=== PATIENT | female | born 1955 | race Two or more races ===

== ENCOUNTER 2023-08-29 08:10 | Outpatient (REF) | payer OTHER, SELFPAY ==
[2023-08-29 11:25] LABS: MANUAL DIFF FLAG NO
[2023-08-29 11:32] LABS: Basophils Percent Auto 0.5 % (0-2); Eosinophils Absolute Auto 0.1 X10*3/uL (0.0-0.4); Eosinophils Percent Auto 1.5 % (0-4); Hematocrit 33.7 % (37.0-47.0); Hemoglobin 11.3 g/dl (12.0-16.0); Imm Gran Abs Auto 0.02 X10*3/uL (0.00-0.03); Imm Gran Pct Auto 0.3 % (0.0-0.4); Lymphocytes Absolute Auto 1.8 X10*3/uL (1.2-4.9); Lymphocytes Percent Auto 29.7 % (20-40); Mean Corpuscular HGB Conc 33.5 g/dl (31.0-35.0); Mean Corpuscular Hemoglobin 30.6 pg (27.0-33.0); Mean Corpuscular Volume 91.3 fL (80.0-98.0); Mean Platelet Volume 10.1 fL (9.4-12.3); Monocytes Absolute Auto 0.4 X10*3/uL (0.1-1.2); Monocytes Percent Auto 7.2 % (2-11); Neutrophils Absolute Auto 3.7 x10*3/uL (2.0-8.3); Neutrophils Percent Auto 60.8 % (45-73); Platelet Count 194 X10*3/uL (160-400); Red Blood Count 3.69 X10*6/uL (4.20-5.50); Red Cell Distribution Width 12.7 % (11.0-16.0); White Blood Count 6.1 X10*3/uL (4.8-10.8)
[2023-08-29 11:51] LABS: Alanine Aminotransferase 13 U/L (0-31); Albumin Level 4.2 g/dL (3.5-5.0); Alkaline Phosphatase 70 U/L (39-117); Anion Gap 9 (12-20); Aspartate Amino Transferase 21 U/L (5-31); Bilirubin Total 0.8 mg/dL (0.0-1.0); Blood Urea Nitrogen 16 mg/dL (9-16); Calcium 10.3 mg/dL (8.4-10.2); Carbon Dioxide 32 mmol/L (22-29); Chloride 107 mmol/L (96-108); Cholesterol 175 mg/dL (<200); Estimated Glomerular Filt Rate > 60; Glucose Random 89 mg/dL (60-115); HDL Cholesterol 54 mg/dL (>40); LDL Cholesterol Calculated 104 mg/dL (<100); Potassium 3.7 mmol/L (3.3-5.1); Sodium 144 mmol/L (135-145); Triglycerides 89 mg/dL (<150)
[2023-08-29 12:06] LABS: HBS Num1 0.59 mIU/mL (0-7.99)
[2023-08-29 12:07] LABS: HBc Num1 0.11 S/CO (0.00-0.79); HBsAGNum1 0.29 S/CO (0.00-0.99); HIV AB/AG Nonreactive (Nonreactive); HIV Num 1 0.05 S/CO (0.00-0.99); Hepatitis B Core Antibody Nonreactive (Nonreactive); Hepatitis B Surface Antigen Negative (Negative); TSH reflex Free T4 1.42 uIU/mL (0.32-4.0); ~Hepatitis B Surface Antibody NONREACTIVE (Nonreactive); ~Hepatitis C Antibody Nonreactive (Nonreactive)
== END 2023-08-29 08:11 | disposition home or self-care (01) ==
LOC: HO.HHCL 08:10
PROVIDERS: Visit Provider Nurse Practitioner
DX: I49.40 Unspecified premature depolarization (principal); Z13.9 Encounter for screening, unspecified; E03.9 Hypothyroidism, unspecified
CPT/HCPCS: 36415; 80053; 80061; 84443; 85025; 86704; 86706; 86803; 87340; 87389

== ENCOUNTER 2023-10-02 08:17 | Outpatient (REF) | payer OTHER, SELFPAY ==
[2023-10-02 11:32] LABS: Iron 121 mcg/dL (30-160); Percent Iron Saturation 42 % (15-50); Total Iron Binding Capacity 286 mcg/dL (228-428); Unsaturated Iron Binding 165 ug/dL
== END 2023-10-02 08:18 | disposition home or self-care (01) ==
LOC: HO.HHCL 08:17
PROVIDERS: Visit Provider Nurse Practitioner Family
DX: D64.9 Anemia, unspecified (principal)
CPT/HCPCS: 36415; 83540

== ENCOUNTER 2023-10-10 13:20 | Outpatient (REF) | payer OTHER, SELFPAY ==
--- NOTE | ~2023-10-10 | MM_ITS ---
EXAMINATION: BONE DENSITOMETRY CLINICAL INDICATION: History of osteoporosis. COMPARISON: This is the patient's baseline examination. TECHNIQUE: Using a Amplid[employer] DXA System (software version: 13.1) manufactured by [employer], dual-energy x-ray absorptiometry was performed of the lumbar spine and left hip. The images are of good technical quality. Summary results are attached. FINDINGS: LEFT FEMUR, NECK: BMD 0.558 g/cm2, Z-score -1.5, T-score -3.5, osteoporosis. LEFT FEMUR, TOTAL: BMD 0.530 g/cm2, Z-score -2.0, T-score -3.8, osteoporosis. AP SPINE L1-L4: BMD 0.806 g/cm2, Z-score -1.0, T-score -3.1, osteoporosis. IDENTIFIED RISK FACTORS: Early menopause, height loss, hysterectomy, low body weight, osteoporosis, rheumatoid arthritis, secondary osteoporosis (hyperthyroidism). HISTORY OF FRACTURE: None listed. MEDICATIONS: Calcium, vitamin D, Prolia. MM/XR DEXA axial skeleton IMPRESSION: 1. DIAGNOSIS: Osteoporosis based on the lowest T-score value of -3.8 in the total femur applying World Health Organization criteria. 2. 10-YEAR FRACTURE RISK PREDICTION, FRAX: According to the guidelines, FRAX calculation should only be performed on patients in the osteopenia bone density category. Therefore, FRAX was not performed on this patient. 3. Treatment Recommendations: NOF guidelines recommend consideration for treatment in postmenopausal women and men age 50 and older presenting with the following: -A hip or vertebral (clinical or morphometric) fracture. -T-score less than or equal to -2.5 at the femoral neck or spine after appropriate evaluation to exclude secondary causes. -Low bone mass at the hip or spine and a 10-year fracture probability by FRAX of greater than or equal to 3% for hip fracture or greater than or equal to 20% for major osteoporotic fracture based on the [place] adapted WHO algorithm. 4. Other Recommendations: All treatment decisions require clinical judgment and consideration of individual patient factors, including patient preferences, comorbidities, previous drug use, risk factors not captured in the FRAX model (e.g. frailty, falls, vitamin D deficiency, increased bone turnover, interval significant decline in bone density) and possible under or overestimation of fracture risk by FRAX. Additional medical evaluation for secondary cause of low bone mineral density may be appropriate. FUTURE SCAN RECOMMENDATION: People with diagnosed cases of osteoporosis or at high risk for fracture should have regular bone mineral density tests. For patients eligible for Medicare, routine testing is allowed once every 2 years. The testing frequency can be increased to one year for patients who have rapidly progressing disease, those who are receiving or discontinuing medical therapy to restore bone mass, or have additional risk factors.
== END 2023-10-10 13:21 | disposition home or self-care (01) ==
LOC: HO.MAMMO 13:20
PROVIDERS: PCP Nurse Practitioner; Visit Provider Nurse Practitioner
DX: M81.0 Age-related osteoporosis without current pathological fracture (principal); Z78.0 Asymptomatic menopausal state
CPT/HCPCS: 77080

== ENCOUNTER 2023-11-11 14:00 | Outpatient (RCR) | payer OTHER, SELFPAY | END 2023-12-24 12:18 | disposition home or self-care (01) | LOC: HO.PT 14:00 | PROVIDERS: PCP Nurse Practitioner; Visit Provider Nurse Practitioner | DX: M54.2 Cervicalgia (principal) | CPT/HCPCS: 97110; 97140; 97161; 97535 ==

== ENCOUNTER 2023-11-14 02:27 | Inpatient (IN) | payer OTHER, SELFPAY ==
[2023-11-14] VITALS (9 sets, daily range): BP systolic 100–137; BP diastolic 53–75; PULSE 66–100; RESP 12–18; TEMP 36.2–36.7; O2SAT 98–100; BMI 21.2; BMI 23.7
--- NOTE | ~2023-11-14 | XR_ITS ---
EXAMINATION: XR CHEST CLINICAL INFORMATION: NG tube insertion. COMPARISON: [facility] 11/18/2023, x-ray chest 11/14/2023. TECHNIQUE: Frontal view of the chest was obtained. FINDINGS: NG tube courses through the expected location of the stomach in the left upper quadrant with tip projecting in the right upper quadrant, possibly in the distal stomach/antrum/proximal duodenum. Heart size is normal. Bibasilar consolidations, left greater than right. Small left pleural effusion. There is no gross pneumothorax. Cardiac silhouette upper limits of normal in size. XR/XR chest 1V IMPRESSION: 1. NG tube courses through the expected location of the stomach in the left upper quadrant with tip projecting in the right upper quadrant, possibly in the distal stomach/antrum/proximal duodenum. 2. Bibasilar consolidations, left greater than right. Small left pleural effusion. Electronically signed by: Lisbet Aguilar MD 11/20/2023 07:36 AM EDT
--- NOTE | ~2023-11-14 | XR_ITS ---
EXAMINATION: XR ABDOMEN KUB CLINICAL INDICATION: Small bowel follow-through COMPARISON: Small bowel follow-through examination 2624 TECHNIQUE: AP view of the abdomen. FINDINGS: There has been progression of contrast compared to the small bowel follow-through earlier. There are multiple diffusely dilated small bowel loops throughout the abdomen. XR/XR KUB IMPRESSION: Progression of contrast compared to the small bowel follow-through earlier, though contrast does not reach the colon. Persistent small bowel obstruction. Electronically signed by: Holly Smyth MD 11/19/2023 04:07 AM EDT
--- NOTE | ~2023-11-14 | XR_ITS ---
EXAMINATION: XR CHEST CLINICAL INFORMATION: NG tube placement COMPARISON: None available. TECHNIQUE: Frontal view of the chest was obtained. FINDINGS: No significant abnormality is noted involving the heart, lungs, mediastinum, bony thorax or soft tissues. NG tube terminates in the stomach. XR/XR chest 1V IMPRESSION: NG tube terminates in the stomach. Electronically signed by: Holly Smyth MD 11/14/2023 06:24 AM EDT
--- NOTE | ~2023-11-14 | FL_ITS ---
EXAMINATION: FL SMALL BOWEL FOLLOW-THROUGH CLINICAL INFORMATION: High-grade bowel obstruction on CT scan COMPARISON: CT scan November 14, 2023 TECHNIQUE: Following a cafeteria cashier image of the abdomen, contrast was administered orally, and interval abdominal radiographs were performed to assess for contrast progression through the small bowel. FINDINGS: Marine Engine Driver image of the abdomen demonstrates dilated small bowel loops throughout the abdomen. After ingesting the Gastrografin, the patient vomited majority of the contrast. Abdominal radiographs obtained demonstrated a small amount of Gastrografin in the small bowel. The patient declined to drink any further mouth of Gastrografin. FL/FL small bowel follow through IMPRESSION: 1. Dilated loops of small bowel throughout the abdomen. Insufficient amount of Gastrografin ingested for diagnostic study. Patient declined additional contrast. This procedure was performed by Yosef Shen PA-C, and supervised by Dr. Talavera Electronically signed by: Jey Talavera MD 11/18/2023 04:55 PM EDT
--- NOTE | ~2023-11-14 | CT_ITS ---
EXAMINATION: CT ABDOMEN PELVIS WITH IV CONTRAST CLINICAL INFORMATION: diffuse abdominal pain COMPARISON: None. TECHNIQUE: IV contrast enhanced CT of the abdomen and pelvis Intravenous Contrast: Omnipaque [address] examination was performed using dose optimization techniques as appropriate, variously including the following: *Automated exposure control *Adjustment of mA and/or kV according to patient size (this includes techniques or standardized protocols for targeted exams where dose is matched to indication/reason for exam; i.e. extremities or head) *Use of iterative reconstruction technique DLP: 346 mGy-cm FINDINGS: Multiple thin-walled dilated small bowel segments are present measuring up to 3 cm in diameter. A transition between dilated and nondilated small bowel segments is noted within the right hemipelvis (series 3 image 66, series 7 image 29). Immediately proximal segment of small bowel demonstrates prominence of mucosal hyperemia and reticulation of the adjacent small bowel mesentery. No associated mass or hernia is noted in this region the uterus is not visualized and may be surgically absent. No adnexal lesions are noted. No abdominal wall hernias visualized. No free intraperitoneal gas noted. Trace scattered interloop free intraperitoneal fluid is noted and may represent reactive fluid. The colon is largely decompressed side from a moderate quantity of physiologic stool in the rectal vault. Normal appearance of the appendix. The visualized lung bases are clear. Focal fatty sparing is noted adjacent to the falciform ligament of the liver. Normal appearance of the gallbladder. No biliary duct dilatation. Normal appearance of the pancreas and spleen. Normal appearance of the adrenal glands and kidneys aside from a 9 mm rounded low-density focus within the right kidney most consistent with a benign, simple cyst requiring no additional imaging follow-up. Urinary bladder demonstrates mild physiologic distention. Mild scattered atherosclerosis is present. The abdominal aorta is normal in caliber. No abdominal or pelvic lymphadenopathy noted. No suspicious skeletal lesions noted. Incidental note made of a synovial inclusion cyst associated with the right femoral neck. CT/CT abdomen pelvis w IV con IMPRESSION: *High-grade small bowel obstruction. A transition between dilated and nondilated small bowel is identified in the right hemipelvis within the distal ileum and may be secondary to otherwise nonvisualized adhesions. No mass or hernia is noted in association with the transition point. No evidence of intestinal perforation. The uterus is absent consistent with prior hysterectomy. Electronically signed by: Jason Davis MD 11/14/2023 04:47 AM EDT RP
[2023-11-14 03:06] LABS: MANUAL DIFF FLAG NO
[2023-11-14 03:09] LABS: Basophils Percent Auto 0.2 % (0-2); Eosinophils Percent Auto 0.1 % (0-4); Hematocrit 37.4 % (37.0-47.0); Imm Gran Abs Auto 0.04 X10*3/uL (0.00-0.03); Imm Gran Pct Auto 0.3 % (0.0-0.4); Lymphocytes Absolute Auto 1.1 X10*3/uL (1.2-4.9); Lymphocytes Percent Auto 8.4 % (20-40); Mean Corpuscular HGB Conc 34.8 g/dl (31.0-35.0); Mean Corpuscular Hemoglobin 30.8 pg (27.0-33.0); Mean Corpuscular Volume 88.6 fL (80.0-98.0); Mean Platelet Volume 9.2 fL (9.4-12.3); Monocytes Absolute Auto 0.5 X10*3/uL (0.1-1.2); Monocytes Percent Auto 4.2 % (2-11); Neutrophils Absolute Auto 10.9 x10*3/uL (2.0-8.3); Neutrophils Percent Auto 86.8 % (45-73); Platelet Count 216 X10*3/uL (160-400); Red Blood Count 4.22 X10*6/uL (4.20-5.50); Red Cell Distribution Width 12.1 % (11.0-16.0); White Blood Count 12.5 X10*3/uL (4.8-10.8)
[2023-11-14 03:22] LABS: Alanine Aminotransferase 11 U/L (0-31); Albumin Level 4.5 g/dL (3.5-5.0); Alkaline Phosphatase 98 U/L (39-117); Anion Gap 16 (12-20); Aspartate Amino Transferase 22 U/L (5-31); Bilirubin Direct 0.3 mg/dL (0.0-0.5); Blood Urea Nitrogen 13 mg/dL (9-16); Calcium 10.5 mg/dL (8.4-10.2); Carbon Dioxide 24 mmol/L (22-29); Chloride 105 mmol/L (96-108); Creatinine Clr Calc Pharmacy 39.3; Estimated Glomerular Filt Rate 54; Glucose Random 151 mg/dL (60-115); Lipase 14 U/L (8-78); Potassium 3.6 mmol/L (3.3-5.1); Sodium 141 mmol/L (135-145); Total Protein 7.5 g/dL (6.5-8.0)
[2023-11-14] MEDS: iohexoL 350 MG/ML 100 ML INFUS..BTL 85 ML IV (04:23)
[2023-11-14] MEDS: ondansetron HCL 4 MG/2 ML VIAL IVPUSH (04:25)
[2023-11-14] MEDS: Morphine Sulfate 4 MG/ML CARTRIDGE IVPUSH (04:25)
[2023-11-14] MEDS: 0.9 % Sodium Chloride 1,000 ML 200 ML IVCONT (04:25)
--- NOTE | 2023-11-14 05:27 | ED_ITS ---
HPI - Abdominal Pain General Chief Complaint: Abdominal Pain Stated Complaint: Abd Pain Time Seen by Provider: 11/14/23 03:50 Source: patient and family Mode of arrival: ambulatory Limitations: language barrier History of Present Illness ED Provider: Dr. King HPI narrative: patient is a 68yo female with prior tubal ligation, Hysterectomy, partial oophorectomy who presents with intermittent abdominal pain getting worse more intense and longer. Patient has been vomiting on occaision. MD elicited complaint: abdominal pain Onset (ago): day(s) Pain Consistency: intermittent Related Data Allergies Allergy/AdvReac Type Severity Reaction Status Date / Time Sulfa (Sulfonamide Allergy Anaphylaxis Verified 11/14/23 02:36 Antibiotics) aspirin AdvReac Nausea Verified 11/14/23 02:36 Review of Systems Review of Systems Yes all other systems are reviewed and are negative Denies Sensory deficit (Neuro) [facility] Social History Social History Advance Directives: No Advance Directives Information Provided: Yes Do you have a plan to hurt others: No Plan Physical Exam ED Vital Signs: Vital Signs - 24 hr 11/14/23 02:28 11/14/23 02:56 11/14/23 04:03 Temperature 97.9 F 98.1 F Pulse Rate 97 92 82 Respiratory Rate 18 16 16 Blood Pressure 118/73 137/75 117/74 Pulse Oximetry 99 99 98 Oxygen Delivery Method Room Air Room Air Room Air BMI result Body Mass Index 21.2 Const Other: thin female in intermittent severe pain Orientation/consciousness: oriented to person and patient oriented x3 Limitations: no limitations HENMT Head: Yes normal to inspection Ears: external ears normal General nose exam: Normal external nose present Mouth: Normal oral and palatal mucosa present and oropharynx normal Throat: Yes posterior oropharynx normal Eyes General: appearance normal, both eyes and all related structures Neck Neck: Yes normal visual inspection Chest Chest palpation & inspection: normal inspection of the chest Resp Auscultation: clear to auscultation bilaterally Cardio Jugular venous distension: no JVD Rate: regular rate Rhythm: regular rhythm Heart sounds: S1 normal heart sound present and S2 normal heart sound present GI Other: diffusely tender Inspection: Yes normal to inspection General: Yes no CVA tenderness Back/Spine/Pelvis Back: no CVA tenderness Skin General skin exam: no rashes or lesions noted Neuro General: oriented to person and patient oriented x3 Cranial nerves: Yes CN's II-XII intact bilaterally Motor exam (neuro): 5/5 motor strength present throughout Sensory Exam: No Sensory deficit (Neuro) Extrem General: Yes normal to inspection Psych Appearance: grossly normal Course Reevaluation(s) Reevaluation #1: patient with bowel obstruction on CT will place ngt and admit, discussed with dr. Muro Time: 05:35 Medical Decision Making Differential Diagnosis Differential Diagnoses: The differential diagnosis associated with the presentation includes (colitis, pancreatitis, bowel obstruction diverticulitis) Admission/Observation Consideration of admission/observation: Escalation of care including admission/observation considered (upon arrival patient considered for admission) Consult Healthcare Provider Management of the patient was discussed with: Electrical Maintenance Technician (Jina, surgery) Lab Data 11/14/23 03:02 11/14/23 03:02 Labs: Lab Results 11/14/23 Range/Units 03:02 WBC 12.5 H (4.8-10.8) X10*3/uL RBC 4.22 (4.20-5.50) X10*6/uL Hgb 13.0 (12.0-16.0) g/dl Hct 37.4 (37.0-47.0) % MCV 88.6 (80.0-98.0) fL MCH 30.8 (27.0-33.0) pg MCHC 34.8 (31.0-35.0) g/dl RDW 12.1 (11.0-16.0) % Plt Count 216 (160-400) X10*3/uL MPV 9.2 L (9.4-12.3) fL Immature Gran % (Auto) 0.3 (0.0-0.4) % Neut % (Auto) 86.8 H (45-73) % Lymph % (Auto) 8.4 L (20-40) % [place] % (Auto) 4.2 (2-11) % Eos % (Auto) 0.1 (0-4) % Baso % (Auto) 0.2 (0-2) % Lymph # (Auto) 1.1 L (1.2-4.9) X10*3/uL [place] # (Auto) 0.5 (0.1-1.2) X10*3/uL Eos # (Auto) 0.0 (0.0-0.4) X10*3/uL Baso # (Auto) 0.0 (0.0-0.2) X10*3/uL Abs Immat Gran (auto) 0.04 H (0.00-0.03) X10*3/uL Absolute Neuts (auto) 10.9 H (2.0-8.3) x10*3/uL Absolute Nucleated RBC 0.000 (0.0-0.012) X10*3/uL Nucleated RBC % (auto) 0.0 (0.0-0.2) /100WBC Sodium 141 (135-145) mmol/L Potassium 3.6 (3.3-5.1) mmol/L Chloride 105 (96-108) mmol/L Carbon Dioxide 24 (22-29) mmol/L Anion Gap 16 (12-20) BUN 13 (9-16) mg/dL Creatinine 1.02 (0.5-1.4) mg/dL Estim Creat Clear Calc 39.3 Estimated GFR 54 Random Glucose 151 H (60-115) mg/dL Calcium 10.5 H (8.4-10.2) mg/dL Total Bilirubin 1.0 (0.0-1.0) mg/dL Direct Bilirubin 0.3 (0.0-0.5) mg/dL AST 22 (5-31) U/L ALT 11 (0-31) U/L Alkaline Phosphatase 98 (39-117) U/L Total Protein 7.5 (6.5-8.0) g/dL Albumin 4.5 (3.5-5.0) g/dL Lipase 14 (8-78) U/L Radiology Impression Discussion of test interpretation with radiology: I have reviewed the radiologist's reading. (I reviewed the reading of the CT and agree) Independent Historian Clinical information obtained from an independent historian. History obtained from or confirmed by: Friend Prescription Management I considered prescription management with: Antibiotic (no evidence of infection) Medications Administered Generic Name Dose Route Start Last Admin Trade Name Freq PRN Reason Stop Dose Admin Sodium Chloride 1,000 mls @ 200 mls/hr 11/14/23 04:15 11/14/23 04:25 Ns IVCONT 11/14/23 09:14 200 mls/hr .Q5H [facility] Administration Discontinued Medications Generic Name Dose Route Start Last Admin Trade Name Saúlq PRN Reason Stop Dose Admin Iohexol 85 ml 11/14/23 04:22 11/14/23 04:23 Iohexol 350 Mg/Ml 100 Ml Infus..Btl IV 11/14/23 04:23 85 ml ONCE ONE Administration Morphine Sulfate 4 mg 11/14/23 04:03 11/14/23 04:25 Morphine Sulfate 4 Mg/Ml Cartridge IVPUSH 11/14/23 04:04 4 mg ONCE ONE Administration Protocol Ondansetron HCl 4 mg 11/14/23 04:03 11/14/23 04:25 Ondansetron Hcl 4 Mg/2 Ml Vial IVPUSH 11/14/23 04:04 4 mg ONCE ONE Administration Discharge Plan Discharge Clinical Impression: Bowel obstruction Patient Disposition: Admitted As Inpatient Print Language: Ukrainian
[2023-11-14] MEDS: Acetaminophen 1,000 MG/100 ML PIGGYBACK 400 MG IV ×4 (07:01→23:42)
[2023-11-14] MEDS: 0.9 % Sodium Chloride Flush 3 ML SYRINGE IVFLUSH (07:54)
[2023-11-14] MEDS: Lactated Ringers 1,000 ML 100 ML IVCONT ×2 (07:54→16:36)
--- NOTE | 2023-11-14 08:03 | PC.NURSE ---
alert and oriented with even and unlabored respirations. NG tube in place w/ 200mL output. ambulates independently to the bathroom, only complaint at this time is discomfort d/t ng tube. IV fluids infusing, call ardon within reach.
--- NOTE | 2023-11-14 09:25 | P.HPGS_ITS ---
History of Present Illness History of Present Illness Date of Service: 11/14/23 Chief complaint: Small Bowel Obstruction Narrative: Annabel Mckinley is a 68 year old equatorial guinean speaking female with PMH of HTN, hypothyroidism who presented to the ED with complaints of diffuse abdominal pain. Patient reports the pain began one week ago. It has been intermittent and crampy in nature and has been gradually worsening in severity and with pain lasting longer. She reports feeling bloated. Due to the severity of pain yesterday and vomiting, she presented to the ED for evaluation. Work up in the ED included CBC, BMP, LFTs which was significant for a mild leukocytosis. CT scan showed dilated small bowel loops with transition transition point in the right hemipelvis. NGT was inserted in the ED and admission to the surgical service was requested. She has a surgical history of hysterectomy, oophorectomy, tubal ligation. This morning she feels improved this morning and denies any abdominal pain, bloating. She has not passed flatus. Reports last BM was yesterday morning and was normal. She reports similar episode of pain one time prior lat year which was not as severe and resolved quickly. Review of Systems 2 Constitutional: Constitutional: Denies chills and Denies fever(s) ENT: Denies dizziness Cardiovascular: Cardiovascular: Denies chest pain and Denies dyspnea Respiratory: Respiratory: Denies cough and Denies dyspnea Gastrointestinal: Gastrointestinal: Reports as per HPI, Reports bloating, Reports nausea and Reports vomiting Integumentary/Breasts: Skin/Breast: Denies rash and Denies jaundice Neurologic: Denies dizziness [facility], [facility] Social History Social History Patient Tobacco Use Status: Never used Tobacco Smoked in Last 30 Days: No Use of substances other than those prescribed or required for medical reasons: No Advance Directives: No Advance Directives Information Provided: Yes Do you have a plan to hurt others: No Plan Nutrition Risks: No Nutritional Risk Meds Allergies Allergy/AdvReac Type Severity Reaction Status Date / Time Sulfa (Sulfonamide Allergy Anaphylaxis Verified 11/14/23 02:36 Antibiotics) aspirin AdvReac Nausea Verified 11/14/23 02:36 Active Medications: Current Medications Enoxaparin Sodium (Enoxaparin Sodium 40 Mg/0.4 Ml Syringe) 40 mg SUBCUT Q24H [facility] Lactated Ringer's (Lr) 1,000 mls @ 100 mls/hr IVCONT .Q10H [facility] Last Admin: 11/14/23 07:54 Dose: 100 mls/hr Acetaminophen (Ofirmev) 1,000 mg in 100 mls @ 400 mls/hr IV Q6H [facility] Stop: 11/15/23 00:14 Last Infusion: 11/14/23 07:53 Dose: Infused Magnesium Hydroxide (Milk Of Magnesia 30 Ml Oral.Susp) 30 ml PO DAILY PRN PRN Reason: Constipation Morphine Sulfate (Morphine Sulfate 4 Mg/Ml Cartridge) 4 mg IVPUSH Q4H PRN; Protocol PRN Reason: Pain, Severe (Pain Scale 7-10) Ondansetron HCl (Ondansetron Hcl 4 Mg/2 Ml Vial) 4 mg IVPUSH QID PRN PRN Reason: Nausea Sodium Chloride (0.9 % Sodium Chloride Flush 3 Ml Syringe) 3 ml IVFLUSH QSHIFT [facility] Last Admin: 11/14/23 07:54 Dose: 3 ml Zolpidem Tartrate (Zolpidem Tartrate 5 Mg Tablet) 5 mg PO BEDTIME PRN PRN Reason: Insomnia Home Medications ?Medication ?Instructions ?Recorded ?Confirmed ?Last Taken ?Type atenolol 50 mg tablet 50 mg PO DAILY 11/14/23 11/14/23 11/13/23 History diclofenac sodium 1 % topical gel 1 g topical TID PRN pain 11/14/23 11/14/23 Unknown History famotidine 40 mg tablet 40 mg PO DAILY 11/14/23 11/14/23 11/13/23 History levothyroxine 25 mcg tablet 25 mcg PO DAILY@0600 11/14/23 11/14/23 11/13/23 History (Synthroid) sumatriptan succinate 25 mg tablet 25 mg PO DAILY PRN Migraine 11/14/23 11/14/23 Unknown History Headache Physical Exam 2 Vital Signs: Vital Signs: Last Vital Signs Temp 97.6 F 11/14/23 08:14 Pulse 66 11/14/23 08:14 Resp 14 11/14/23 08:14 BP 107/53 L 11/14/23 08:14 Pulse Ox 98 11/14/23 08:14 O2 Del Method Room Air 11/14/23 08:14 BMI result Body Mass Index 21.2 Const: General: comfortable, no acute distress and alert O rientation/consciousness: patient oriented x3 HEENT: Other: NGT in place Resp: Effort & Inspection: normal respiratory effort GI: Inspection: Yes distended (mild, softly) and Yes scar (midline, inferior to umbilicus ) Palpation (GI): Soft to palpation, nontender and no guarding Percussion: Yes normal to percussion Abdomen image: 1. midline hysterectomy scar Skin: General skin exam: no rashes or lesions noted Neuro: General: patient oriented x3 and moves all extremities Extrem: General: Yes no clubbing, cyanosis or edema Results Results Labs: Short CBC 11/14/23 Range/Units 03:02 WBC 12.5 H (4.8-10.8) X10*3/uL Hgb 13.0 (12.0-16.0) g/dl Hct 37.4 (37.0-47.0) % Plt Count 216 (160-400) X10*3/uL BMP 11/14/23 03:02 Sodium 141 Potassium 3.6 Chloride 105 Carbon Dioxide 24 BUN 13 Creatinine 1.02 Calcium 10.5 H Liver Function 11/14/23 Range/Units 03:02 Total Bilirubin 1.0 (0.0-1.0) mg/dL Direct Bilirubin 0.3 (0.0-0.5) mg/dL AST 22 (5-31) U/L ALT 11 (0-31) U/L Alkaline Phosphatase 98 (39-117) U/L Albumin 4.5 (3.5-5.0) g/dL Chest x-ray: image reviewed Abdomen CT scan report/results: report reviewed and image reviewed Assessment and Plan (1) Bowel obstruction: Status: Acute Plan Annabel Mckinley is a 68 year old equatorial guinean speaking female with PMH of HTN, hypothyroidism and PSH of hysterectomy, tubal and oophorectomy who presented with diffuse crampy abd pain x 1 week with acute worsening in severity yesterday with CT scan showing dilated bowel loops with possible transition point in the right hemipelvis. There was concern for high grade obstruction but she is improved this morning and is now asymptomatic with a very benign abd exam. Will continue nonoperative management with NGT for decompression, IVF, PRN analgesics. Encouraged OOB and ambulation to promote GI function. Further plan dependent on clinical course. Patient comfortable with plan. Quality Stroke Does the patient have a stroke diagnosis?: No VTE Prior VTE?: No VTE Risk Level:: Surgical - moderate VTE Device Contraindication: N/A - Device Ordered VTE Drug Contraindication: N/A - Med Ordered Procedures Date of Service Date of Service: 11/14/23
--- NOTE | 2023-11-14 10:18 | PHA.MEDREC ---
Addendum entered by Gabby Pederson RPh 11/14/23 10:22: Reviewed by [facility] Original Note: Pharmacy Consult ? Medication Reconciliation Pharmacy has completed the medication reconciliation.Spoke to patient through rn resource nurse service (Jaida) Patient was able to confirm med list. Patient states she get Name brand Synthroid. informed patient we do not carry name brand and she would have to bring it from home. Patient she says she can take generic.
--- NOTE | 2023-11-14 10:36 | PM.HPGS ---
History of Present Illness History of Present Illness Date of Service: 11/14/23 Chief complaint: Small Bowel Obstruction Narrative: Annabel Mckinley is a 68 year old female presenting with complaints of episodes of sharp abdominal pain located throughout the abdomen associated with nausea and vomiting. Patient reports a prior history of hysterectomy back in the 80s and denies a previous history of bowel obstructions. The pain became quite severe over the last several days and she subsequently presented to the emergency department for further evaluation. She was noted to be diffusely tender and distended. CT abdomen and pelvis revealed distended loops of small bowel with an apparent transition point in the distal small bowel. Nasogastric tube was inserted in the emergency department. This morning the patient feels somewhat improved with less abdominal pain the pain initially was 10/10 but now is down to 3/10. She denies any nausea at this time. She is admitted to the surgical service for further management of this small-bowel obstruction. Review of Systems Review of Systems: Yes all other systems are reviewed and are negative Constitutional: Constitutional: Denies chills, Denies fever(s), Denies headache(s), Reports poor appetite and Denies weakness ENT: Denies headache(s) Cardiovascular: Cardiovascular: Denies chest pain, Denies irregular heart rhythm, Denies palpitations and Denies dyspnea Respiratory: Respiratory: Denies cough, Denies excessive phlegm production and Denies dyspnea Gastrointestinal: Gastrointestinal: Reports abdominal pain, Denies bloating, Denies change in bowel habits, Denies constipation, Denies heartburn, Denies diarrhea, Reports nausea and Reports vomiting Genitourinary: Genitourinary: Denies urinary frequency Musculoskeletal: Musculoskeletal: Denies back pain, Denies muscle weakness and Denies numbness Integumentary/Breasts: Skin/Breast: Denies changing lesions and Denies unusual bruising Neurologic: Denies headache(s), Denies numbness, Denies paresthesias and Denies weakness Psychiatric: Psychiatric: Denies anxiety and Denies depression Endocrine: Endocrine: Denies palpitations Hematologic/Lymphatic: Hematologic/Lymphatic: Denies lymphadenopathy [facility] Social History Social History Patient Tobacco Use Status: Never used Tobacco Smoked in Last 30 Days: No Use of substances other than those prescribed or required for medical reasons: No Advance Directives: No Advance Directives Information Provided: Yes Do you have a plan to hurt others: No Plan Nutrition Risks: No Nutritional Risk Meds Allergies Allergy/AdvReac Type Severity Reaction Status Date / Time Sulfa (Sulfonamide Allergy Anaphylaxis Verified 11/14/23 02:36 Antibiotics) aspirin AdvReac Nausea Verified 11/14/23 02:36 Active Medications: Current Medications Enoxaparin Sodium (Enoxaparin Sodium 40 Mg/0.4 Ml Syringe) 40 mg SUBCUT Q24H [facility] Lactated Ringer's (Lr) 1,000 mls @ 100 mls/hr IVCONT .Q10H [facility] Last Admin: 11/14/23 07:54 Dose: 100 mls/hr Acetaminophen (Ofirmev) 1,000 mg in 100 mls @ 400 mls/hr IV Q6H [facility] Stop: 11/15/23 00:14 Last Infusion: 11/14/23 07:53 Dose: Infused Magnesium Hydroxide (Milk Of Magnesia 30 Ml Oral.Susp) 30 ml PO DAILY PRN PRN Reason: Constipation Morphine Sulfate (Morphine Sulfate 4 Mg/Ml Cartridge) 4 mg IVPUSH Q4H PRN; Protocol PRN Reason: Pain, Severe (Pain Scale 7-10) Ondansetron HCl (Ondansetron Hcl 4 Mg/2 Ml Vial) 4 mg IVPUSH QID PRN PRN Reason: Nausea Sodium Chloride (0.9 % Sodium Chloride Flush 3 Ml Syringe) 3 ml IVFLUSH QSHIFT [facility] Last Admin: 11/14/23 07:54 Dose: 3 ml Zolpidem Tartrate (Zolpidem Tartrate 5 Mg Tablet) 5 mg PO BEDTIME PRN PRN Reason: Insomnia Home Medications ?Medication ?Instructions ?Recorded ?Confirmed ?Last Taken ?Type atenolol 50 mg tablet 50 mg PO DAILY 11/14/23 11/14/23 11/13/23 History diclofenac sodium 1 % topical gel 1 g topical TID PRN pain 11/14/23 11/14/23 Unknown History famotidine 40 mg tablet 40 mg PO DAILY 11/14/23 11/14/23 11/13/23 History levothyroxine 25 mcg tablet 25 mcg PO DAILY@0600 11/14/23 11/14/23 11/13/23 History (Synthroid) sumatriptan succinate 25 mg tablet 25 mg PO DAILY PRN Migraine 11/14/23 11/14/23 Unknown History Headache Physical Exam Vital Signs: Vital Signs: Last Vital Signs Temp 97.6 F 11/14/23 08:14 Pulse 66 11/14/23 08:14 Resp 14 11/14/23 08:14 BP 107/53 L 11/14/23 08:14 Pulse Ox 98 11/14/23 08:14 O2 Del Method Room Air 11/14/23 08:14 BMI result Body Mass Index 21.2 Const: General: cooperative and no acute distress Nutritional Appearance: well nourished Orientation/consciousness: patient oriented x3 Limitations: no limitations HEENT: Head: Yes normocephalic and Yes atraumatic Ears: hearing grossly normal bilaterally Resp: Effort & Inspection: normal respiratory effort, no audible wheezes, no cough and no respiratory distress Cardio: Jugular venous distension: no JVD GI: Other: Soft, minimally distended, minimal tenderness, mildly tympanitic to percussion. No rebound, guarding or rigidity. Inspection: Yes normal to inspection Skin: Other: Warm, dry, no rash Neuro: General: patient oriented x3 Extrem: General: Yes no clubbing, cyanosis or edema Results Results Labs: Short CBC 11/14/23 Range/Units 03:02 WBC 12.5 H (4.8-10.8) X10*3/uL Hgb 13.0 (12.0-16.0) g/dl Hct 37.4 (37.0-47.0) % Plt Count 216 (160-400) X10*3/uL BMP 11/14/23 03:02 Sodium 141 Potassium 3.6 Chloride 105 Carbon Dioxide 24 BUN 13 Creatinine 1.02 Calcium 10.5 H Liver Function 11/14/23 Range/Units 03:02 Total Bilirubin 1.0 (0.0-1.0) mg/dL Direct Bilirubin 0.3 (0.0-0.5) mg/dL AST 22 (5-31) U/L ALT 11 (0-31) U/L Alkaline Phosphatase 98 (39-117) U/L Albumin 4.5 (3.5-5.0) g/dL Assessment and Plan (1) Bowel obstruction: Qualifiers: Intestinal obstruction type: obstruction due to adhesions Intestinal obstruction extent: partial Qualified Code(s): K56.51 - Intestinal adhesions [bands], with partial obstruction Status: Acute Plan 68-year-old female patient presenting with a probable partial small-bowel obstruction with abdominal tenderness, nausea and vomiting. This morning she feels improved with less abdominal pain following insertion of nasogastric tube decompression. She will be admitted to the surgical service and placed on IV fluids with continued nasogastric decompression. If her symptoms do not improve a repeat CT abdomen and pelvis with oral contrast will be performed. The patient expressed any and agrees with the plan. Quality Stroke Does the patient have a stroke diagnosis?: No VTE Prior VTE?: No VTE Risk Level:: Surgical - moderate VTE Device Contraindication: N/A - Device Ordered VTE Drug Contraindication: N/A - Med Ordered Procedures Date of Service Date of Service: 11/14/23
[2023-11-14 13:26] LABS: Appearance Urine Clear; Color Urine Yellow; Glucose Urine UA Negative (Negative); Leukocyte Esterase Urine Negative (Negative); Nitrite Urine Negative (Negative); PH 6.5 (5.0-9.0); Specific Gravity - Urine >= 1.030 (1.005-1.025); UMIC TRIGGER UACC YES; Urine Blood Trace (Negative); Urine Ketones Trace mg/dL (Negative); Urine Protein Negative (Neg-Trace)
[2023-11-14 13:32] LABS: Bacteria Urine None Seen (None Seen); Hyaline Casts Urine 0-2 /LPF (0-2); Squamous Epithelial Cell Urine 0-2 /HPF (0-2); WBC Urine 0-5 /HPF (0-5)
[2023-11-15] MEDS: Lactated Ringers 1,000 ML 100 ML IVCONT (03:10)
[2023-11-15 03:46] VITALS: BP 130/60; PULSE 75; RESP 18; TEMP 36.1; O2SAT 99
[2023-11-15] MEDS: Levothyroxine Sodium 25 MCG TABLET PO (05:30)
[2023-11-15 07:01] LABS: MANUAL DIFF FLAG NO
[2023-11-15 07:06] LABS: Basophils Percent Auto 0.2 % (0-2); Eosinophils Percent Auto 0.5 % (0-4); Hematocrit 34.6 % (37.0-47.0); Hemoglobin 11.7 g/dl (12.0-16.0); Imm Gran Abs Auto 0.03 X10*3/uL (0.00-0.03); Imm Gran Pct Auto 0.3 % (0.0-0.4); Lymphocytes Absolute Auto 1.3 X10*3/uL (1.2-4.9); Lymphocytes Percent Auto 15.1 % (20-40); Mean Corpuscular HGB Conc 33.8 g/dl (31.0-35.0); Mean Corpuscular Hemoglobin 30.8 pg (27.0-33.0); Mean Corpuscular Volume 91.1 fL (80.0-98.0); Mean Platelet Volume 10.2 fL (9.4-12.3); Monocytes Absolute Auto 0.6 X10*3/uL (0.1-1.2); Monocytes Percent Auto 6.7 % (2-11); Neutrophils Absolute Auto 6.7 x10*3/uL (2.0-8.3); Neutrophils Percent Auto 77.2 % (45-73); Platelet Count 186 X10*3/uL (160-400); Red Cell Distribution Width 12.3 % (11.0-16.0); White Blood Count 8.7 X10*3/uL (4.8-10.8)
[2023-11-15 07:27] LABS: Anion Gap 12 (12-20); Blood Urea Nitrogen 11 mg/dL (9-16); Calcium 9.3 mg/dL (8.4-10.2); Carbon Dioxide 29 mmol/L (22-29); Chloride 107 mmol/L (96-108); Creatinine Clr Calc Pharmacy 52.7; Estimated Glomerular Filt Rate > 60; Glucose Random 86 mg/dL (60-115); Potassium 3.7 mmol/L (3.3-5.1); Sodium 144 mmol/L (135-145)
--- NOTE | 2023-11-15 07:34 | PM.PNGS ---
Subjective Subjective Date of Service: 11/15/23 <Liliana Lynne PA-C - Last Filed: 11/15/23 07:39> 11/15/23 <Morales Muro MD - Last Filed: 11/15/23 07:55> Interval history: Feels well this morning, much improved. Denies any abdominal pain. Began passing flatus last night. NGT with moderate output but taking a lot of ice chips. <Liliana Lynne PA-C - Last Filed: 11/15/23 07:39> Physical Exam Vital Signs: Vital Signs: Last Vital Signs Temp 96.9 F 11/15/23 03:46 Pulse 75 11/15/23 03:46 Resp 18 11/15/23 03:46 BP 130/60 11/15/23 03:46 Pulse Ox 99 11/15/23 03:46 O2 Del Method Room Air 11/15/23 03:46 BMI result Body Mass Index 23.7 <Liliana Lynne PA-C - Last Filed: 11/15/23 07:39> Const: General: comfortable, no acute distress and alert <Liliana Lynne PA-C - Last Filed: 11/15/23 07:39> Orientation/consciousness: patient oriented x3 <ESTELA Hall Last Filed: 11/15/23 07:39> Resp: Effort & Inspection: normal respiratory effort <Liliana Lynne PA-C - Last Filed: 11/15/23 07:39> GI: Inspection: Yes distended (mildly ) <Liliana Lynne PA-C - Last Filed: 11/15/23 07:39> Palpation (GI): Soft to palpation, nontender and no guarding <Liliana Lynne PA-C - Last Filed: 11/15/23 07:39> Skin: General skin exam: no rashes or lesions noted <ESTELA Hall Last Filed: 11/15/23 07:39> Neuro: General: patient oriented x3 <ESTELA Hall Last Filed: 11/15/23 07:39> Objective Data Active Medications Atenolol (Atenolol 50 Mg Tablet) 50 mg PO DAILY [facility]; Protocol Enoxaparin Sodium (Enoxaparin Sodium 40 Mg/0.4 Ml Syringe) 40 mg SUBCUT Q24H [facility] Famotidine (Famotidine 20 Mg Tablet) 40 mg PO DAILY [facility] Lactated Ringer's (Lr) 1,000 mls @ 100 mls/hr IVCONT .Q10H [facility] Last Admin: 11/15/23 03:10 Dose: 100 mls/hr Documented By: JOSEPHINE Levothyroxine Sodium (Levothyroxine Sodium 25 Mcg Tablet) 25 mcg PO DAILY@0600 [facility] Last Admin: 11/15/23 05:30 Dose: 25 mcg Documented By: JOSEPHINE Magnesium Hydroxide (Milk Of Magnesia 30 Ml Oral.Susp) 30 ml PO DAILY PRN PRN Reason: Constipation Morphine Sulfate (Morphine Sulfate 4 Mg/Ml Cartridge) 4 mg IVPUSH Q4H PRN; Protocol PRN Reason: Pain, Severe (Pain Scale 7-10) Ondansetron HCl (Ondansetron Hcl 4 Mg/2 Ml Vial) 4 mg IVPUSH QID PRN PRN Reason: Nausea Sodium Chloride (0.9 % Sodium Chloride Flush 3 Ml Syringe) 3 ml IVFLUSH QSHIFT [facility] Last Admin: 11/15/23 00:13 Dose: Not Given Documented By: JOSEPHINE Non-Admin Reason: IV Running Sumatriptan Succinate (Sumatriptan Succinate 25 Mg Tablet) 25 mg PO DAILY PRN PRN Reason: Migraine Headache Zolpidem Tartrate (Zolpidem Tartrate 5 Mg Tablet) 5 mg PO BEDTIME PRN PRN Reason: Insomnia <Liliana Lynne PA-C - Last Filed: 11/15/23 07:39> Labs CBC & Chem 7: 11/15/23 05:09 11/15/23 05:09 <Liliana Lynne PA-C - Last Filed: 11/15/23 07:39> Labs: Laboratory Results - last 24 hr 11/14/23 11/15/23 13:09 05:09 MCV 91.1 MCH 30.8 MCHC 33.8 RDW 12.3 Plt Count 186 MPV 10.2 Immature Gran % (Auto) 0.3 Neut % (Auto) 77.2 H Lymph % (Auto) 15.1 L Rutherford % (Auto) 6.7 Eos % (Auto) 0.5 Baso % (Auto) 0.2 Lymph # (Auto) 1.3 Rutherford # (Auto) 0.6 Eos # (Auto) 0.0 Baso # (Auto) 0.0 Abs Immat Gran (auto) 0.03 Absolute Neuts (auto) 6.7 Absolute Nucleated RBC 0.000 Nucleated RBC % (auto) 0.0 Anion Gap 12 Estim Creat Clear Calc 52.7 Estimated GFR > 60 Random Glucose 86 Calcium 9.3 D Urine Color Yellow Urine Appearance Clear Urine pH 6.5 Ur Specific Vaughn >= 1.030 H Urine Protein Negative Urine Glucose (UA) Negative Urine Ketones Trace Urine Blood Trace H Urine Nitrite Negative Ur Leukocyte Esterase Negative Urine RBC 3-5 H Urine WBC 0-5 Ur Squamous Epith Cells 0-2 Urine Bacteria None Seen Hyaline Casts 0-2 <Liliana Lynne PA-C - Last Filed: 11/15/23 07:39> Procedures Date of Service Date of Service: 11/15/23 <Liliana Lynne PA-C - Last Filed: 11/15/23 07:39> 11/15/23 <Morales Muro MD - Last Filed: 11/15/23 07:55> Progress Note: A&P Assessment and plan (1) Bowel obstruction: Status: Acute <Liliana Lynne PA-C - Last Filed: 11/15/23 07:39> Assessment and Plan: Dc NGT, begin clear liquids. Will advance diet as tolerated. Cont OOB/ambulation. Patient comfortable with plan. Home when tolerating solid diet. <Liliana Lynne PA-C - Last Filed: 11/15/23 07:39> Dc NGT, begin clear liquids. Will advance diet as tolerated. Cont OOB/ambulation. Patient comfortable with plan. Home when tolerating solid diet. Agree with the above assessment and plan. Patient is much improved this morning with no abdominal pain, nausea or vomiting. Abdominal exam is benign without rebound, guarding or rigidity. No tympany to percussion. Agree with advancing diet, discharge when tolerating regular diet. <Morales Muro MD - Last Filed: 11/15/23 07:55> Time Spent With Patient Time: Total time managing care of this patient today ____ minutes. <Liliana Lynne PA-C - Last Filed: 11/15/23 07:39> Quality Stroke Does the patient have a stroke diagnosis?: No <Liliana Lynne PA-C - Last Filed: 11/15/23 07:39> VTE Prior VTE?: No <Liliana Lynne PA-C - Last Filed: 11/15/23 07:39> VTE Risk Level:: Surgical - moderate <Liliana Lynne PA-C - Last Filed: 11/15/23 07:39> VTE Device Contraindication: N/A - Device Ordered <Liliana Lynne PA-C - Last Filed: 11/15/23 07:39> VTE Drug Contraindication: N/A - Med Ordered <Liliana Lynne PA-C - Last Filed: 11/15/23 07:39>
[2023-11-15 08:00] VITALS: BP 127/63; PULSE 93; RESP 12; TEMP 36.6; O2SAT 99
[2023-11-15] MEDS: atenoloL 50 MG TABLET PO (09:13)
[2023-11-15] MEDS: Famotidine 20 MG TABLET 40 MG PO (09:13)
[2023-11-15] MEDS: Enoxaparin Sodium 40 MG/0.4 ML SYRINGE SUBCUT (09:15)
--- NOTE | 2023-11-15 11:14 | MHC.CM.PN ---
IMM 11/14. CM intake assessment completed with the assistance of a rn anesthetist. Pt self-care, lives alone at home. Pts [id number] will transport her home. New HCP completed with pt, now on file. PCP: Laurie RUSH
[2023-11-15 16:00] VITALS: BP 133/72; PULSE 87; RESP 14; TEMP 36.2; O2SAT 99
[2023-11-15 19:39] VITALS: BP 124/56; PULSE 77; RESP 18; TEMP 36.7; O2SAT 98
[2023-11-15] MEDS: 0.9 % Sodium Chloride Flush 3 ML SYRINGE IVFLUSH (21:28)
[2023-11-16 03:43] VITALS: BP 112/56; PULSE 77; RESP 18; TEMP 36.6; O2SAT 99
[2023-11-16] MEDS: Morphine Sulfate 4 MG/ML CARTRIDGE IVPUSH ×3 (04:23→18:21)
--- NOTE | 2023-11-16 04:31 | PC.NURSE ---
patient states 8/10 abdominal pain. BM yesterday, no N/V, hypo BS. Medicated with Morphine Sulfate with acceptable relief.
[2023-11-16] MEDS: Levothyroxine Sodium 25 MCG TABLET PO (05:53)
[2023-11-16] MEDS: 0.9 % Sodium Chloride Flush 3 ML SYRINGE IVFLUSH ×2 (07:24→14:55)
[2023-11-16] MEDS: Enoxaparin Sodium 40 MG/0.4 ML SYRINGE SUBCUT (07:24)
[2023-11-16 07:25] VITALS: BP 113/52; PULSE 78
[2023-11-16] MEDS: Famotidine 20 MG TABLET 40 MG PO (07:25)
[2023-11-16] MEDS: atenoloL 50 MG TABLET PO (07:25)
[2023-11-16 07:59] VITALS: BP 112/63; PULSE 90; RESP 19; TEMP 36.7; O2SAT 99
[2023-11-16] MEDS: ondansetron HCL 4 MG/2 ML VIAL IVPUSH (09:11)
--- NOTE | 2023-11-16 09:21 | PC.NURSE ---
Patient vomited 100 ml of light green liquid,Zofran and Morphine for pain administered,Dr. Sullivan notified
--- NOTE | 2023-11-16 14:21 | P.PNGS_ITS ---
Subjective Subjective Date of Service: 11/16/23 Interval history: Patient had episode of nausea and vomiting this morning. She is currently not hungry. She says she is passing flatus. She has mid abdominal tenderness 10/01.. Labs from yesterday within normal limits Physical Exam 2 Vital Signs: Vital Signs: Last Vital Signs Temp 98.0 F 11/16/23 07:59 Pulse 90 11/16/23 07:59 Resp 19 11/16/23 07:59 BP 112/63 11/16/23 07:59 Pulse Ox 99 11/16/23 07:59 O2 Del Method Room Air 11/16/23 07:59 BMI result Body Mass Index 23.7 GI: Other: Abdomen mildly corpulent, softly distended, mild periumbilical tenderness but without evidence of guarding, rebound, or rigidity. Objective Data Active Medications Atenolol (Atenolol 50 Mg Tablet) 50 mg PO DAILY [facility]; Protocol Last Admin: 11/16/23 07:25 Dose: 50 mg Documented By: ANKIT Enoxaparin Sodium (Enoxaparin Sodium 40 Mg/0.4 Ml Syringe) 40 mg SUBCUT Q24H [facility] Last Admin: 11/16/23 07:24 Dose: 40 mg Documented By: ANKIT Famotidine (Famotidine 20 Mg Tablet) 40 mg PO DAILY [facility] Last Admin: 11/16/23 07:25 Dose: 40 mg Documented By: ANKIT Sodium Chloride (Ns) 1,000 mls @ 100 mls/hr IVCONT .Q10H [facility] Levothyroxine Sodium (Levothyroxine Sodium 25 Mcg Tablet) 25 mcg PO DAILY@0600 [facility] Last Admin: 11/16/23 05:53 Dose: 25 mcg Documented By: JOSEPHINE Magnesium Hydroxide (Milk Of Magnesia 30 Ml Oral.Susp) 30 ml PO DAILY PRN PRN Reason: Constipation Morphine Sulfate (Morphine Sulfate 4 Mg/Ml Cartridge) 4 mg IVPUSH Q4H PRN; Protocol PRN Reason: Pain, Severe (Pain Scale 7-10) Last Admin: 11/16/23 09:12 Dose: 4 mg Documented By: ANKIT Ondansetron HCl (Ondansetron Hcl 4 Mg/2 Ml Vial) 4 mg IVPUSH QID PRN PRN Reason: Nausea Last Admin: 11/16/23 09:11 Dose: 4 mg Documented By: ANKIT Sodium Chloride (0.9 % Sodium Chloride Flush 3 Ml Syringe) 3 ml IVFLUSH [facility] Last Admin: 11/16/23 07:24 Dose: 3 ml Documented By: ANKIT Sumatriptan Succinate (Sumatriptan Succinate 25 Mg Tablet) 25 mg PO DAILY PRN PRN Reason: Migraine Headache Zolpidem Tartrate (Zolpidem Tartrate 5 Mg Tablet) 5 mg PO BEDTIME PRN PRN Reason: Insomnia Labs 11/15/23 05:09 11/15/23 05:09 Procedures Date of Service Date of Service: 11/16/23 Progress Note: A&P Assessment and plan (1) Bowel obstruction: Status: Acute Plan P.o. intake limited so we will restart IV. Encourage out of bed, incentive spirometry Time Spent With Patient Time: Total time managing care of this patient today ____ minutes. Quality Stroke Does the patient have a stroke diagnosis?: No VTE Prior VTE?: No VTE Risk Level:: Surgical - moderate VTE Device Contraindication: N/A - Device Ordered VTE Drug Contraindication: N/A - Med Ordered
[2023-11-16] MEDS: 0.9 % Sodium Chloride 1,000 ML 100 ML IVCONT (14:53)
--- NOTE | 2023-11-16 15:32 | PC.NURSE ---
Patient is questioning if the doctor will see her today,Dr. Sullivan notified
[2023-11-16 15:47] VITALS: BP 110/59; PULSE 73; RESP 20; TEMP 36.4; O2SAT 99
[2023-11-16 19:36] VITALS: BP 99/55; PULSE 78; RESP 14; TEMP 36.6; O2SAT 97
[2023-11-17] MEDS: 0.9 % Sodium Chloride 1,000 ML 100 ML IVCONT ×3 (01:04→21:25)
[2023-11-17 03:13] VITALS: BP 102/54; PULSE 87; RESP 16; TEMP 37.3; O2SAT 99
[2023-11-17] MEDS: Levothyroxine Sodium 25 MCG TABLET PO (05:17)
--- NOTE | 2023-11-17 06:13 | PC.NURSE ---
patient is requesting Tylenol for abdominal pain. Dr Sullivan notified via [employer] and to place order.
[2023-11-17] MEDS: 0.9 % Sodium Chloride Flush 3 ML SYRINGE IVFLUSH (07:14)
--- NOTE | 2023-11-17 07:23 | PC.NURSE ---
patient would like Tylenol for abdominal pain,Dr. Sullivan notified
[2023-11-17 07:35] VITALS: BP 120/56; PULSE 81; TEMP 36.6; O2SAT 97
[2023-11-17] MEDS: Famotidine 20 MG TABLET 40 MG PO (07:37)
[2023-11-17] MEDS: atenoloL 50 MG TABLET PO (07:37)
[2023-11-17] MEDS: Enoxaparin Sodium 40 MG/0.4 ML SYRINGE SUBCUT (07:37)
[2023-11-17] MEDS: Acetaminophen 325 MG TABLET 650 MG PO ×2 (11:11→21:24)
--- NOTE | 2023-11-17 14:41 | PM.PNGS ---
Subjective Subjective Date of Service: 11/17/23 Interval history: Patient states she is passing flatus. She is afraid to eat because she thinks that increases her gas. Otherwise no new issues or complaints. No episodes of nausea and vomiting.. Patient has been ambulating and doing her incentive spirometer Physical Exam Vital Signs: Vital Signs: Last Vital Signs Temp 97.9 F 11/17/23 07:35 Pulse 81 11/17/23 07:35 Resp 16 11/17/23 03:13 BP 120/56 L 11/17/23 07:35 Pulse Ox 97 11/17/23 07:35 O2 Del Method Room Air 11/17/23 07:35 BMI result Body Mass Index 23.7 Const: Other: Patient is sitting up, conversant, in no acute abdominal distress GI: Other: Abdomen soft, mild periumbilical tenderness but without any evidence of guarding, rebound, or rigidity. Objective Data Active Medications Acetaminophen (Acetaminophen 325 Mg Tablet) 650 mg PO Q6H PRN PRN Reason: Pain, Mild (Pain Scale 1-3) Last Admin: 11/17/23 11:11 Dose: 650 mg Documented By: ANKIT Atenolol (Atenolol 50 Mg Tablet) 50 mg PO DAILY [facility]; Protocol Last Admin: 11/17/23 07:37 Dose: 50 mg Documented By: ANKIT Enoxaparin Sodium (Enoxaparin Sodium 40 Mg/0.4 Ml Syringe) 40 mg SUBCUT Q24H [facility] Last Admin: 11/17/23 07:37 Dose: 40 mg Documented By: ANKIT Famotidine (Famotidine 20 Mg Tablet) 40 mg PO DAILY [facility] Last Admin: 11/17/23 07:37 Dose: 40 mg Documented By: ANKIT Sodium Chloride (Ns) 1,000 mls @ 100 mls/hr IVCONT .Q10H [facility] Last Admin: 11/17/23 11:10 Dose: 100 mls/hr Documented By: ANKIT Levothyroxine Sodium (Levothyroxine Sodium 25 Mcg Tablet) 25 mcg PO DAILY@0600 [facility] Last Admin: 11/17/23 05:17 Dose: 25 mcg Documented By: LYSZ Magnesium Hydroxide (Milk Of Magnesia 30 Ml Oral.Susp) 30 ml PO DAILY PRN PRN Reason: Constipation Morphine Sulfate (Morphine Sulfate 4 Mg/Ml Cartridge) 4 mg IVPUSH Q4H PRN; Protocol PRN Reason: Pain, Severe (Pain Scale 7-10) Last Admin: 11/16/23 18:21 Dose: 4 mg Documented By: ANKIT Ondansetron HCl (Ondansetron Hcl 4 Mg/2 Ml Vial) 4 mg IVPUSH QID PRN PRN Reason: Nausea Last Admin: 11/16/23 09:11 Dose: 4 mg Documented By: ANKIT Sodium Chloride (0.9 % Sodium Chloride Flush 3 Ml Syringe) [facility] Last Admin: 11/17/23 14:26 Dose: Not Given Documented By: ANKIT Non-Admin Reason: IV Running Sumatriptan Succinate (Sumatriptan Succinate 25 Mg Tablet) 25 mg PO DAILY PRN PRN Reason: Migraine Headache Zolpidem Tartrate (Zolpidem Tartrate 5 Mg Tablet) 5 mg PO BEDTIME PRN PRN Reason: Insomnia Labs 11/15/23 05:09 11/15/23 05:09 Procedures Date of Service Date of Service: 11/17/23 Progress Note: A&P Assessment and plan (1) Bowel obstruction: Status: Acute Plan Clear liquids for now, continue IV fluids, incentive spirometry, repeat CBC, continue ambulation. Time Spent With Patient Time: Total time managing care of this patient today ____ minutes. Quality Stroke Does the patient have a stroke diagnosis?: No VTE Prior VTE?: No VTE Risk Level:: Surgical - moderate VTE Device Contraindication: N/A - Device Ordered VTE Drug Contraindication: N/A - Med Ordered
[2023-11-17 15:08] LABS: Baso%MD 0.8 %; Eos%MD 0.8 %; Hematocrit 30.5 % (37.0-47.0); Hemoglobin 10.6 g/dl (12.0-16.0); Lymph%MD 38.4 %; Mean Corpuscular HGB Conc 34.8 g/dl (31.0-35.0); Mean Corpuscular Hemoglobin 31.2 pg (27.0-33.0); Mean Corpuscular Volume 89.7 fL (80.0-98.0); Mean Platelet Volume 9.5 fL (9.4-12.3); Mono%MD 19.2 %; Neut%MD 40.8 %; Platelet Count 167 X10*3/uL (160-400)
[2023-11-17 15:13] LABS: White Blood Count 2.5 X10*3/uL (4.8-10.8)
[2023-11-17 15:24] LABS: Atypical Lymph Absolute Manual 0.1 x10*3/uL; Atypical Lymphs Percent Manual 2 % (0-6); Band Neutrophils Percent 8 % (3-5); Basophils Abs Manual 0.1 X10*3/uL (0.0-0.2); Basophils Percent Manual 2 % (0-2); Lymphocytes Percent Manual 39 % (20-40); Monocytes Absolute Manual 0.3 X10*3/uL (0.1-1.2); Monocytes Percent Manual 10 % (2-11); Neutrophils Absolute Manual 1.2 X10*3/uL (2.0-8.3); Neutrophils Percent Manual 39 % (45-73)
[2023-11-17 15:25] LABS: Platelet Estimate NORMAL (NORMAL); Platelet Morphology Comment NORMAL; RBC Morphology NORMAL
[2023-11-17 15:43] VITALS: BP 114/56; PULSE 78; RESP 18; TEMP 36.3; O2SAT 99
[2023-11-17] MEDS: oxyCODONE HCl Immed Release 5 MG TABLET PO ×2 (19:18→22:56)
[2023-11-17 19:47] VITALS: BP 130/63; PULSE 82; RESP 18; TEMP 36.4; O2SAT 98
[2023-11-18 04:00] VITALS: BP 108/65; PULSE 74; RESP 18; TEMP 36.2; O2SAT 98
[2023-11-18] MEDS: Levothyroxine Sodium 25 MCG TABLET PO (05:50)
[2023-11-18] MEDS: 0.9 % Sodium Chloride 1,000 ML 100 ML IVCONT (05:53)
[2023-11-18 06:16] VITALS: BP 129/61; PULSE 77; RESP 20; TEMP 36.9
[2023-11-18 07:49] VITALS: BP 125/55; PULSE 83; RESP 12; TEMP 36.2; O2SAT 99
--- NOTE | 2023-11-18 07:57 | PM.PNGS ---
Subjective Subjective Date of Service: 11/18/23 Interval history: Had nausea on Saturday which resolved. Has been tolerating clear liquids but continues to c/o mild bloating and belching. No flatus or BM she reports. Has been OOB and ambulating. Physical Exam Vital Signs: Vital Signs: Last Vital Signs Temp 97.1 F 11/18/23 07:49 Pulse 83 11/18/23 07:49 Resp 12 11/18/23 07:49 BP 125/55 L 11/18/23 07:49 Pulse Ox 99 11/18/23 07:49 O2 Del Method Room Air 11/18/23 07:49 BMI result Body Mass Index 23.7 Const: General: comfortable, no acute distress and alert Orientation/consciousness: patient oriented x3 Resp: Effort & Inspection: normal respiratory effort GI: Inspection: Yes distended (mild) Palpation (GI): Soft to palpation and nontender Percussion: Yes tympanic to percussion Skin: General skin exam: no rashes or lesions noted Neuro: General: patient oriented x3 and moves all extremities Objective Data Active Medications Acetaminophen (Acetaminophen 325 Mg Tablet) 650 mg PO Q6H PRN PRN Reason: Pain, Mild (Pain Scale 1-3) Last Admin: 11/17/23 21:24 Dose: 650 mg Documented By: JERED Atenolol (Atenolol 50 Mg Tablet) 50 mg PO DAILY [facility]; Protocol Last Admin: 11/17/23 07:37 Dose: 50 mg Documented By: ANKIT Enoxaparin Sodium (Enoxaparin Sodium 40 Mg/0.4 Ml Syringe) 40 mg SUBCUT Q24H [facility] Last Admin: 11/17/23 07:37 Dose: 40 mg Documented By: ANKIT Famotidine (Famotidine 20 Mg Tablet) 40 mg PO DAILY [facility] Last Admin: 11/17/23 07:37 Dose: 40 mg Documented By: ANKIT Sodium Chloride (Ns) 1,000 mls @ 100 mls/hr IVCONT .Q10H [facility] Last Admin: 11/18/23 05:53 Dose: 100 mls/hr Documented By: OSBALDO Levothyroxine Sodium (Levothyroxine Sodium 25 Mcg Tablet) 25 mcg PO DAILY@0600 [facility] Last Admin: 11/18/23 05:50 Dose: 25 mcg Documented By: OSBALDO Magnesium Hydroxide (Milk Of Magnesia 30 Ml Oral.Susp) 30 ml PO DAILY PRN PRN Reason: Constipation Morphine Sulfate (Morphine Sulfate 4 Mg/Ml Cartridge) 4 mg IVPUSH Q4H PRN; Protocol PRN Reason: Pain, Severe (Pain Scale 7-10) Last Admin: 11/16/23 18:21 Dose: 4 mg Documented By: ANKIT Ondansetron HCl (Ondansetron Hcl 4 Mg/2 Ml Vial) 4 mg IVPUSH QID PRN PRN Reason: Nausea Last Admin: 11/16/23 09:11 Dose: 4 mg Documented By: ANKIT Oxycodone HCl (Oxycodone Hcl Immed Release 5 Mg Tablet) 5 mg PO Q4H PRN PRN Reason: Pain, Moderate(Pain Scale 4-6) Last Admin: 11/17/23 22:56 Dose: 5 mg Documented By: JERED Sodium Chloride (0.9 % Sodium Chloride Flush 3 Ml Syringe) 3 ml IVFLUSH [facility] Last Admin: 11/18/23 01:21 Dose: Not Given Documented By: OSBALDO Non-Admin Reason: IV Running Sumatriptan Succinate (Sumatriptan Succinate 25 Mg Tablet) 25 mg PO DAILY PRN PRN Reason: Migraine Headache Zolpidem Tartrate (Zolpidem Tartrate 5 Mg Tablet) 5 mg PO BEDTIME PRN PRN Reason: Insomnia Labs 11/17/23 14:49 11/15/23 05:09 Labs: Laboratory Results - last 24 hr 11/17/23 14:49 MCV 89.7 MCH 31.2 MCHC 34.8 RDW 12.0 Plt Count 167 MPV 9.5 Absolute Nucleated RBC 0.000 Nucleated RBC % (auto) 0.0 Neutrophils % (Manual) 39 L Band Neutrophils % 8 H Lymphocytes % (Manual) 39 Atypical Lymphs % (Man) 2 Monocytes % (Manual) 10 Basophils % (Manual) 2 Abs Neuts (Manual) 1.2 L Lymphocytes # (Manual) 1.0 L Atyp Lymphs # (Manual) 0.1 Monocytes # (Manual) 0.3 Basophils # (Manual) 0.1 Platelet Estimate NORMAL Plt Morphology Comment NORMAL RBC Morphology NORMAL Procedures Date of Service Date of Service: 11/18/23 Progress Note: A&P Assessment and plan (1) Bowel obstruction: Status: Acute Plan No evidence of return of GI function, continued mild distention on exam. Will order SBFT today to further assess. Cont OOB/ambulation. Patient comfortable with plan. Time Spent With Patient Time: Total time managing care of this patient today ____ minutes. Quality Stroke Does the patient have a stroke diagnosis?: No VTE Prior VTE?: No VTE Risk Level:: Surgical - moderate VTE Device Contraindication: N/A - Device Ordered VTE Drug Contraindication: N/A - Med Ordered
[2023-11-18] MEDS: Morphine Sulfate 4 MG/ML CARTRIDGE IVPUSH (10:20)
[2023-11-18] MEDS: ondansetron HCL 4 MG/2 ML VIAL IVPUSH ×2 (10:23→20:36)
[2023-11-18] MEDS: Enoxaparin Sodium 40 MG/0.4 ML SYRINGE SUBCUT (10:27)
[2023-11-18] MEDS: oxyCODONE HCl Immed Release 5 MG TABLET PO ×3 (15:00→22:40)
[2023-11-18] MEDS: Acetaminophen 325 MG TABLET 650 MG PO ×2 (15:02→22:40)
[2023-11-18 15:31] VITALS: BP 153/72; PULSE 77; RESP 14; TEMP 36.4; O2SAT 98
[2023-11-18 19:28] VITALS: BP 125/60; PULSE 79; RESP 18; TEMP 36.1; O2SAT 97
[2023-11-19] VITALS (10 sets, daily range): BP systolic 116–138; BP diastolic 55–67; PULSE 77–110; RESP 14–20; TEMP 36.2–37.2; O2SAT 95–100
[2023-11-19] MEDS: 0.9 % Sodium Chloride 1,000 ML 100 ML IVCONT ×2 (03:40→19:46)
[2023-11-19] MEDS: ondansetron HCL 4 MG/2 ML VIAL IVPUSH (03:57)
[2023-11-19 06:36] LABS: MANUAL DIFF FLAG NO
[2023-11-19 06:38] LABS: Basophils Percent Auto 0.3 % (0-2); Hematocrit 34.1 % (37.0-47.0); Hemoglobin 11.9 g/dl (12.0-16.0); Imm Gran Abs Auto 0.02 X10*3/uL (0.00-0.03); Imm Gran Pct Auto 0.6 % (0.0-0.4); Lymphocytes Absolute Auto 0.8 X10*3/uL (1.2-4.9); Lymphocytes Percent Auto 24.7 % (20-40); Mean Corpuscular HGB Conc 34.9 g/dl (31.0-35.0); Mean Corpuscular Hemoglobin 31.4 pg (27.0-33.0); Monocytes Absolute Auto 0.6 X10*3/uL (0.1-1.2); Monocytes Percent Auto 17.9 % (2-11); Neutrophils Absolute Auto 1.8 x10*3/uL (2.0-8.3); Neutrophils Percent Auto 56.5 % (45-73); Platelet Count 231 X10*3/uL (160-400); Red Blood Count 3.79 X10*6/uL (4.20-5.50); Red Cell Distribution Width 12.2 % (11.0-16.0); White Blood Count 3.1 X10*3/uL (4.8-10.8)
[2023-11-19 06:57] LABS: Anion Gap 21 (12-20); Blood Urea Nitrogen 15 mg/dL (9-16); Calcium 9.5 mg/dL (8.4-10.2); Carbon Dioxide 21 mmol/L (22-29); Chloride 105 mmol/L (96-108); Creatinine Clr Calc Pharmacy 54.1; Estimated Glomerular Filt Rate > 60; Glucose Fasting 83 mg/dL (60-99); Potassium 3.9 mmol/L (3.3-5.1); Sodium 143 mmol/L (135-145)
--- NOTE | 2023-11-19 07:41 | P.PNGS_ITS ---
Subjective Subjective Date of Service: 11/19/23 <Liliana Lynne PA-C - Last Filed: 11/19/23 07:47> 11/19/23 <Morales Muro MD - Last Filed: 11/19/23 08:11> Interval history: Continued nausea and vomiting overnight. Denies flatus or BM. <Liliana Lynne PA-C - Last Filed: 11/19/23 07:47> Physical Exam 2 Vital Signs: Vital Signs: Last Vital Signs Temp 97.1 F 11/19/23 07:11 Pulse 86 11/19/23 07:11 Resp 18 11/19/23 07:11 BP 138/67 11/19/23 07:11 Pulse Ox 98 11/19/23 07:11 O2 Del Method Room Air 11/19/23 07:11 BMI result Body Mass Index 23.7 <Liliana Lynne PA-C - Last Filed: 11/19/23 07:47> Const: General: comfortable, no acute distress and alert <Liliana Lynne PA-C - Last Filed: 11/19/23 07:47> Resp: Effort & Inspection: normal respiratory effort <Liliana Lynne PA-C - Last Filed: 11/19/23 07:47> GI: Inspection: Yes distended <Liliana Lynne PA-C - Last Filed: 11/19/23 07:47> Palpation (GI): Soft to palpation, Tenderness to palpation present (GI) (mild diffuse ) and no guarding <Liliana Lynne PA-C - Last Filed: 11/19/23 07:47> Percussion: Yes tympanic to percussion <Liliana Lynne PA-C - Last Filed: 11/19/23 07:47> Skin: General skin exam: no rashes or lesions noted <ESTELA Hall Last Filed: 11/19/23 07:47> Objective Data Active Medications Acetaminophen (Acetaminophen 325 Mg Tablet) 650 mg PO Q6H PRN PRN Reason: Pain, Mild (Pain Scale 1-3) Last Admin: 11/18/23 22:40 Dose: 650 mg Documented By: JERED Atenolol (Atenolol 50 Mg Tablet) 50 mg PO DAILY [facility]; Protocol Last Admin: 11/18/23 11:52 Dose: Not Given Documented By: NIA Non-Admin Reason: NPO Enoxaparin Sodium (Enoxaparin Sodium 40 Mg/0.4 Ml Syringe) 40 mg SUBCUT Q24H [facility] Last Admin: 11/18/23 10:27 Dose: 40 mg Documented By: NIA Famotidine (Famotidine 20 Mg Tablet) 40 mg PO DAILY [facility] Last Admin: 11/18/23 11:53 Dose: Not Given Documented By: NIA Non-Admin Reason: NPO Sodium Chloride (Ns) 1,000 mls @ 100 mls/hr IVCONT .Q10H [facility] Last Admin: 11/19/23 03:40 Dose: 100 mls/hr Documented By: GILBERT Levothyroxine Sodium (Levothyroxine Sodium 25 Mcg Tablet) 25 mcg PO DAILY@0600 [facility] Last Admin: 11/19/23 05:27 Dose: Not Given Documented By: GILBERT Non-Admin Reason: NPO Magnesium Hydroxide (Milk Of Magnesia 30 Ml Oral.Susp) 30 ml PO DAILY PRN PRN Reason: Constipation Ondansetron HCl (Ondansetron Hcl 4 Mg/2 Ml Vial) 4 mg IVPUSH QID PRN PRN Reason: Nausea Last Admin: 11/19/23 03:57 Dose: 4 mg Documented By: GILBERT Oxycodone HCl (Oxycodone Hcl Immed Release 5 Mg Tablet) 5 mg PO Q4H PRN PRN Reason: Pain, Moderate(Pain Scale 4-6) Last Admin: 11/18/23 22:40 Dose: 5 mg Documented By: JERED Sodium Chloride (0.9 % Sodium Chloride Flush 3 Ml Syringe) 3 ml IVFLUSH QSHIFT [facility] Last Admin: 11/18/23 23:48 Dose: Not Given Documented By: GILBERT Non-Admin Reason: IV Running Sumatriptan Succinate (Sumatriptan Succinate 25 Mg Tablet) 25 mg PO DAILY PRN PRN Reason: Migraine Headache <Liliana Lynne PA-C - Last Filed: 11/19/23 07:47> Labs CBC & Chem 7: 11/19/23 05:16 11/19/23 05:16 <Liliana Lynne PA-C - Last Filed: 11/19/23 07:47> Labs: Laboratory Results - last 24 hr 11/17/23 11/19/23 14:49 05:16 MCV 90.0 MCH 31.4 MCHC 34.9 RDW 12.2 Plt Count 231 D MPV 10.0 Immature Gran % (Auto) 0.6 H Neut % (Auto) 56.5 Lymph % (Auto) 24.7 [place] % (Auto) 17.9 H Eos % (Auto) 0.0 Baso % (Auto) 0.3 Lymph # (Auto) 0.8 L [place] # (Auto) 0.6 Eos # (Auto) 0.0 Baso # (Auto) 0.0 Abs Immat Gran (auto) 0.02 Absolute Neuts (auto) 1.8 L Absolute Nucleated RBC 0.000 Nucleated RBC % (auto) 0.0 Smear Path Review SEE NOTE Anion Gap 21 H Estim Creat Clear Calc 54.1 Estimated GFR > 60 Fasting Glucose 83 Calcium 9.5 <Liliana Lynne PA-C - Last Filed: 11/19/23 07:47> Procedures Date of Service Date of Service: 11/19/23 <Liliana Lynne PA-C - Last Filed: 11/19/23 07:47> 11/19/23 <Morales Muro MD - Last Filed: 11/19/23 08:11> Progress Note: A&P Assessment and plan (1) Bowel obstruction: Status: Acute <Liliana Lynne PA-C - Last Filed: 11/19/23 07:47> Assessment and Plan: Unforunately SBO has not resolved with nonoperative measures, unable to tolerate contrast for SBFT yesterday and 3h f/u xray showed contrast had not progressed to colon. Therefore recommended to proceed with laparotomy, lysis of adhesions, possible small bowel resection. Technique of the procedure, risks and benefits were discussed including injury to surrounding structures/organs like colon, vasculature, bladder. She understands and was added onto the OR schedule for today. <Liliana Lynne PA-C - Last Filed: 11/19/23 07:47> Unforunately SBO has not resolved with nonoperative measures, unable to tolerate contrast for SBFT yesterday and 3h f/u xray showed contrast had not progressed to colon. Therefore recommended to proceed with laparotomy, lysis of adhesions, possible small bowel resection. Technique of the procedure, risks and benefits were discussed including injury to surrounding structures/organs like colon, vasculature, bladder. She understands and was added onto the OR schedule for today. Agree with the above assessment and plan. Abdominal x-rays reviewed. Failure progression of contrast to large intestine with multiple dilated loops of small bowel. Agree with need for exploratory laparotomy, lysis of adhesions, possible small-bowel resection. Reviewed the procedure, risks, and alternatives in detail with the patient using a medical staff manager. We will her questions were answered to her apparent satisfaction. She consents to the exploratory laparotomy, lysis of adhesions, possible bowel resection. <Morales Muro MD - Last Filed: 11/19/23 08:11> Time Spent With Patient Time: Total time managing care of this patient today ____ minutes. <Liliana Lynne PA-C - Last Filed: 11/19/23 07:47> Quality Stroke Does the patient have a stroke diagnosis?: No <Liliana Lynne PA-C - Last Filed: 11/19/23 07:47> VTE Prior VTE?: No <Liliana Lynne PA-C - Last Filed: 11/19/23 07:47> VTE Risk Level:: Surgical - moderate <Liliana Lynne PA-C - Last Filed: 11/19/23 07:47> VTE Device Contraindication: N/A - Device Ordered <Liliana Lynne PA-C - Last Filed: 11/19/23 07:47> VTE Drug Contraindication: N/A - Med Ordered <Liliana Lynne PA-C - Last Filed: 11/19/23 07:47>
[2023-11-19] MEDS: Lactated Ringers 1,000 ML 80 ML IVCONT (12:40)
--- NOTE | 2023-11-19 12:58 | P.CONAN_ITS ---
HPI - Anesthesia Eval Consult details Narrative: SBO has NGT to drainage PMFSH Active Problems Active Problems: All Active Problems Bowel obstruction (Acute) Past Medical History Medical History Hypothyroidism HTN (hypertension) Family History Family history of problems with anesthesia: No Surgical History Surgical History History of tubal ligation History of bilateral oophorectomy History of hysterectomy History of Problems with Anesthesia: No Social History Social History Household Members: None Housing: Apartment Do you presently have visiting nurse or other home services: No Patient Tobacco Use Status: Never used Tobacco Smoked in Last 30 Days: No Second Hand Smoke Exposure: No Use of substances other than those prescribed or required for medical reasons: No Currently Displaying Signs/Symptoms of Drug Intoxication Withdrawal: No Have you been hit, kicked, punched, or otherwise hurt by someone within the past year? If so, by whom?: No Do you feel safe in your current relationship?: No Current Relationship Are you DNR?: No Advance Directives: No Advance Directives Information Provided: Yes Advance Directives on File: No Do you have a plan to hurt others: No Plan Recently lost weight without trying: Yes How much weight loss: 2-13 pounds Eating poorly because of decreased appetite: No Nutrition screen score: 3 Nutrition Risks: No Nutritional Risk Patient : No : No Poor oral hygiene: No service: No Meds Allergies Allergy/AdvReac Type Severity Reaction Status Date / Time Sulfa (Sulfonamide Allergy Anaphylaxis Verified 11/14/23 02:36 Antibiotics) aspirin AdvReac Nausea Verified 11/14/23 02:36 Active Medications: Current Medications Acetaminophen (Acetaminophen 325 Mg Tablet) 650 mg PO Q6H PRN PRN Reason: Pain, Mild (Pain Scale 1-3) Last Admin: 11/18/23 22:40 Dose: 650 mg Atenolol (Atenolol 50 Mg Tablet) 50 mg PO DAILY [facility]; Protocol Last Admin: 11/19/23 09:03 Dose: Not Given Enoxaparin Sodium (Enoxaparin Sodium 40 Mg/0.4 Ml Syringe) 40 mg SUBCUT Q24H [facility] Last Admin: 11/19/23 09:04 Dose: Not Given Famotidine (Famotidine 20 Mg Tablet) 40 mg PO DAILY [facility] Last Admin: 11/19/23 09:04 Dose: Not Given Sodium Chloride (Ns) 1,000 mls @ 100 mls/hr IVCONT .Q10H [facility] Last Admin: 11/19/23 03:40 Dose: 100 mls/hr Lactated Ringer's (Lr) 1,000 mls @ 80 mls/hr IVCONT .[id number] [facility] Last Admin: 11/19/23 12:40 Dose: 80 mls/hr Levothyroxine Sodium (Levothyroxine Sodium 25 Mcg Tablet) 25 mcg PO DAILY@0600 [facility] Last Admin: 11/19/23 05:27 Dose: Not Given Magnesium Hydroxide (Milk Of Magnesia 30 Ml Oral.Susp) 30 ml PO DAILY PRN PRN Reason: Constipation Ondansetron HCl (Ondansetron Hcl 4 Mg/2 Ml Vial) 4 mg IVPUSH QID PRN PRN Reason: Nausea Last Admin: 11/19/23 03:57 Dose: 4 mg Oxycodone HCl (Oxycodone Hcl Immed Release 5 Mg Tablet) 5 mg PO Q4H PRN PRN Reason: Pain, Moderate(Pain Scale 4-6) Last Admin: 11/18/23 22:40 Dose: 5 mg Sodium Chloride (0.9 % Sodium Chloride Flush 3 Ml Syringe) 3 ml IVFLUSH QSHIFT [facility] Last Admin: 11/19/23 09:03 Dose: Not Given Sumatriptan Succinate (Sumatriptan Succinate 25 Mg Tablet) 25 mg PO DAILY PRN PRN Reason: Migraine Headache Home Medications ?Medication ?Instructions ?Recorded ?Confirmed ?Last Taken ?Type atenolol 50 mg tablet 50 mg PO DAILY 11/14/23 11/14/23 11/13/23 History diclofenac sodium 1 % topical gel 1 g topical TID PRN pain 11/14/23 11/14/23 Unknown History famotidine 40 mg tablet 40 mg PO DAILY 11/14/23 11/14/23 11/13/23 History levothyroxine 25 mcg tablet 25 mcg PO DAILY@0600 11/14/23 11/14/23 11/13/23 History (Synthroid) sumatriptan succinate 25 mg tablet 25 mg PO DAILY PRN Migraine 11/14/23 11/14/23 Unknown History Headache Exam Height,Weight and Vital Signs: Height 5 ft 1 in Weight 56.9 kg Last Vital Signs Temp 98.0 F 11/19/23 12:36 Pulse 88 11/19/23 12:36 Resp 16 11/19/23 12:36 BP 138/64 11/19/23 12:36 Pulse Ox 96 11/19/23 12:36 O2 Del Method Room Air 11/19/23 12:36 Pertinent Lab Results Pertinent Lab Results: Laboratory Tests 11/14/23 11/14/23 11/15/23 03:02 13:09 05:09 WBC 12.5 H 8.7 RBC 4.22 3.80 L Hgb 13.0 11.7 L Hct 37.4 34.6 L MCV 88.6 91.1 MCH 30.8 30.8 MCHC 34.8 33.8 RDW 12.1 12.3 Plt Count 216 186 MPV 9.2 L 10.2 Immature Gran % (Auto) 0.3 0.3 Neut % (Auto) 86.8 H 77.2 H Lymph % (Auto) 8.4 L 15.1 L [place] % (Auto) 4.2 6.7 Eos % (Auto) 0.1 0.5 Baso % (Auto) 0.2 0.2 Lymph # (Auto) 1.1 L 1.3 [place] # (Auto) 0.5 0.6 Eos # (Auto) 0.0 0.0 Baso # (Auto) 0.0 0.0 Abs Immat Gran (auto) 0.04 H 0.03 Absolute Neuts (auto) 10.9 H 6.7 Absolute Nucleated RBC 0.000 0.000 Nucleated RBC % (auto) 0.0 0.0 Neutrophils % (Manual) Band Neutrophils % Lymphocytes % (Manual) Atypical Lymphs % (Man) Monocytes % (Manual) Basophils % (Manual) Abs Neuts (Manual) Lymphocytes # (Manual) Atyp Lymphs # (Manual) Monocytes # (Manual) Basophils # (Manual) Platelet Estimate Plt Morphology Comment RBC Morphology Smear Path Review Sodium 141 144 Potassium 3.6 3.7 Chloride 105 107 Carbon Dioxide 24 29 Anion Gap 16 12 BUN 13 11 Creatinine 1.02 0.76 Estim Creat Clear Calc 39.3 52.7 Estimated GFR 54 > 60 Random Glucose 151 H 86 Fasting Glucose Calcium 10.5 H 9.3 D Total Bilirubin 1.0 Direct Bilirubin 0.3 AST 22 ALT 11 Alkaline Phosphatase 98 Total Protein 7.5 Albumin 4.5 Lipase 14 Urine Color Yellow Urine Appearance Clear Urine pH 6.5 Ur Specific [place] >= 1.030 H Urine Protein Negative Urine Glucose (UA) Negative Urine Ketones Trace Urine Blood Trace H Urine Nitrite Negative Ur Leukocyte Esterase Negative Urine RBC 3-5 H Urine WBC 0-5 Ur Squamous Epith Cells 0-2 Urine Bacteria None Seen Hyaline Casts 0-2 11/17/23 11/19/23 14:49 05:16 WBC 2.5 L 3.1 L RBC 3.40 L 3.79 L Hgb 10.6 L 11.9 L Hct 30.5 L 34.1 L MCV 89.7 90.0 MCH 31.2 31.4 MCHC 34.8 34.9 RDW 12.0 12.2 Plt Count 167 231 D MPV 9.5 10.0 Immature Gran % (Auto) 0.6 H Neut % (Auto) 56.5 Lymph % (Auto) 24.7 [place] % (Auto) 17.9 H Eos % (Auto) 0.0 Baso % (Auto) 0.3 Lymph # (Auto) 0.8 L [place] # (Auto) 0.6 Eos # (Auto) 0.0 Baso # (Auto) 0.0 Abs Immat Gran (auto) 0.02 Absolute Neuts (auto) 1.8 L Absolute Nucleated RBC 0.000 0.000 Nucleated RBC % (auto) 0.0 0.0 Neutrophils % (Manual) 39 L Band Neutrophils % 8 H Lymphocytes % (Manual) 39 Atypical Lymphs % (Man) 2 Monocytes % (Manual) 10 Basophils % (Manual) 2 Abs Neuts (Manual) 1.2 L Lymphocytes # (Manual) 1.0 L Atyp Lymphs # (Manual) 0.1 Monocytes # (Manual) 0.3 Basophils # (Manual) 0.1 Platelet Estimate NORMAL Plt Morphology Comment NORMAL RBC Morphology NORMAL Smear Path Review SEE NOTE Sodium 143 Potassium 3.9 Chloride 105 Carbon Dioxide 21 L Anion Gap 21 H BUN 15 Creatinine 0.74 Estim Creat Clear Calc 54.1 Estimated GFR > 60 Random Glucose Fasting Glucose 83 Calcium 9.5 Total Bilirubin Direct Bilirubin AST ALT Alkaline Phosphatase Total Protein Albumin Lipase Urine Color Urine Appearance Urine pH Ur Specific [place] Urine Protein Urine Glucose (UA) Urine Ketones Urine Blood Urine Nitrite Ur Leukocyte Esterase Urine RBC Urine WBC Ur Squamous Epith Cells Urine Bacteria Hyaline Casts Airway Mallampati Class: II TM Dist: >3cm Neck ROM: Full Heart: rrr Lungs: cta Assessment and Plan Assessment Anesthesia Assessment: Anesthesia Plan Discussed Final Anesthetic Review Family History of Problems with Anesthesia: No History of Problems with Anesthesia: No NPO: Yes ASA Class: II Final Preanesthetic Review: No Changes in Pt Med Stat, Meds/Allgs Chart Reviewed, Consent Obtained/Reviewed and Anes Risks/Benef Reviewed Patient Risk: Intermediate Procedure Risk: Intermediate Anesthetic Plan Anesthetic Plan: GA and Regional Block Disposition: Standard PACU
--- NOTE | 2023-11-19 14:18 | W.PM.OPN ---
Operative Note Operative Note Date of Service: 11/19/23 Narrative: Preoperative diagnosis: Small-bowel obstruction due to adhesions, complete Postoperative diagnosis: Same Procedure: Exploratory laparotomy, lysis of adhesions Surgeon: Morales Muro MD Inbound Sales Advisor: Liliana Lynne PA-C Anesthesia: General endotracheal, tap block Indications for procedure: 68-year-old female patient presenting with complaints of abdominal distention nausea, vomiting, found on workup to have dilated loops of small bowel with air-fluid levels suggestive of a small-bowel obstruction. Patient had a prior hysterectomy many years ago and denied a previous history of small-bowel obstruction. Patient was initially treated non operatively with bowel rest and nasogastric tube decompression. She initially improved and had a bowel movement however subsequently developed increased abdominal distention, nausea and vomiting. She presents now for exploratory laparotomy. Operative findings: Small bowel obstruction due to adhesions from previous hysterectomy. A loop of distal ileum was adherent in the pelvis. The bowels found to be viable with no evidence of necrosis. No bowel resection was required. The abdomen was noted to have a large volume of ascitic fluid. Specimen: None Estimated blood loss: 10 mL Complications: None Procedure details: The patient was brought to the OR and placed in a supine position. After administering general anesthesia a tap block was performed by anesthesia. The abdomen was then prepped with ChloraPrep and draped in a sterile fashion. A surgical time-out was called and the consent confirmed. Patient received preoperative antibiotics and Venodyne boots were in paced. A lower midline incision was then made with a scalpel and carried out through subcutaneous tissue, through the linea alba into the peritoneum. Dense adhesions were noted from the omentum to the anterior abdominal wall. This was divided using the LigaSure and the abdomen entered. Dilated loops of small bowel were identified and a copious amounts of ascitic fluid were noted within the abdomen. This was evacuated. The small bowel was then brought up through the incision and run from proximal to distal. The distal ileum was noted to be densely adherent to the posterior pelvis. Areas of adhesions were identified. These were carefully lysed using electrocautery. The terminal ileum was identified upon its entrance into the cecum. This was then followed proximally to the area of obstruction. Remaining adhesions were taken down using electrocautery. No further obstruction could be identified. The bowel was then examined and no areas of bowel injury or bowel necrosis was identified. The bowel was returned to the abdominal cavity observed. No bleeding identified. Fascia was then closed using a running 0 PDS looped suture. Subcutaneous tissue was reapproximated using interrupted 3-0 Polysorb sutures. Skin was closed using skin hector. Sterile dressings were then applied. The patient tolerated the procedure well. Sponge, instrument, and needle counts reported as correct. The patient was transferred to PACU in stable condition.
[2023-11-19] MEDS: 0.9 % Sodium Chloride Flush 3 ML SYRINGE IVFLUSH (17:19)
[2023-11-19] MEDS: Morphine Sulfate 4 MG/ML CARTRIDGE 3 MG IVPUSH (17:36)
[2023-11-20] MEDS: Morphine Sulfate 4 MG/ML CARTRIDGE 3 MG IVPUSH ×4 (00:13→19:55)
[2023-11-20 04:00] VITALS: BP 118/59; PULSE 76; RESP 16; TEMP 36.4; O2SAT 96
[2023-11-20] MEDS: Levothyroxine Sodium 25 MCG TABLET PO (04:04)
[2023-11-20] MEDS: oxyCODONE HCl Immed Release 5 MG TABLET PO ×2 (04:04→12:12)
[2023-11-20] MEDS: 0.9 % Sodium Chloride 1,000 ML 100 ML IVCONT ×2 (04:04→15:20)
[2023-11-20 07:05] VITALS: BP 116/57; PULSE 78; RESP 16; TEMP 36.5; O2SAT 97
--- NOTE | 2023-11-20 07:21 | HO.STUDPN_ITS ---
Subjective Subjective Date of Service: 11/20/23 <Camille Miranda - Last Filed: 11/20/23 07:34> 11/20/23 <Liliana Lynne PA-C - Last Filed: 11/20/23 08:12> 11/20/23 <Morales Muro MD - Last Filed: 11/20/23 08:25> Interval History: Denies nausea. Feels less bloated. Had smearing of BM overnight but denies flatus. Morphine helping with pain. Has not been OOB yet. <Liliana Lynne PA-C - Last Filed: 11/20/23 08:12> Constitutional Constitutional: Denies chills and Denies fever(s) <Liliana Lynne PA-C - Last Filed: 11/20/23 08:12> Gastrointestinal Gastrointestinal: Reports as per HPI <ESTELA Hall Last Filed: 11/20/23 08:12> Physical Exam 2 Vital Signs: Vital Signs: Last Vital Signs Temp 97.7 F 11/20/23 07:05 Pulse 78 11/20/23 07:05 Resp 16 11/20/23 07:05 BP 116/57 L 11/20/23 07:05 Pulse Ox 97 11/20/23 07:05 O2 Del Method Room Air 11/20/23 07:05 O2 Flow Rate 2 11/19/23 15:13 BMI result Body Mass Index 23.7 <[facility] Last Filed: 11/20/23 07:34> Remains afebrile. <[facility] - Last Filed: 11/20/23 07:34> Const: General: cooperative, alert, awake and Physically active <[facility] Last Filed: 11/20/23 07:34> Orientation/consciousness: patient oriented x3 <Liliana Lynne PA-C - Last Filed: 11/20/23 08:12> HEENT: Head: Yes normocephalic and Yes atraumatic <[facility] Last Filed: 11/20/23 07:34> Ears: hearing grossly normal bilaterally <[facility] Last Filed: 11/20/23 07:34> General nose exam: Normal external nose present and Other nasal findings present (NG tube in place) <[facility] Last Filed: 11/20/23 07:34> Eyes: Conjunctivae: conjunctivae normal <[facility] Filed: 11/20/23 07:34> Sclerae: sclerae normal <[facility] Filed: 11/20/23 07:34> EOM: EOMs intact bilaterally <[facility] Filed: 11/20/23 07:34> Neck: Neck: Yes full ROM and Yes no JVD <[facility] Last Filed: 11/20/23 07:34> Resp: Effort & Inspection: normal respiratory effort <[facility] Filed: 11/20/23 07:34> Auscultation: clear to auscultation bilaterally, no crackles, no rales, no rhonchi and no wheezes <[facility] Filed: 11/20/23 07:34> Cardio: Jugular venous distension: no JVD <[facility] Filed: 11/20/23 07:34> Rate: regular rate <[facility] Filed: 11/20/23 07:34> Rhythm: regular rhythm <[facility] Filed: 11/20/23 07:34> Heart sounds: S1 normal heart sound present, S2 normal heart sound present, no gallops, no murmurs and no rubs <[facility] Filed: 11/20/23 07:34> Peripheral pulses: Peripheral pulses 2+ throughout <[facility] Filed: 11/20/23 07:34> GI: Inspection: Yes incision (midline incision, dressings c/d/i) <[facility] Last Filed: 11/20/23 07:34> Inspection: Yes distended <Liliana Lynne PA-C Last Filed: 11/20/23 08:12> Palpation (GI): Soft to palpation, Tenderness to palpation present (GI) in the LLQ, in the RLQ, periumbilically and other (RLQ > LLQ), Guarding due to palpation present (GI) in the RLQ and No Rebound tenderness present <Camille Miranda Last Filed: 11/20/23 07:34> Percussion: Yes tympanic to percussion <Liliana Lynne PA-C - Last Filed: 11/20/23 08:12> Auscultation: normal bowel sounds <[facility] Last Filed: 11/20/23 07:34> : General: Yes bladder normal to palpation and Yes no CVA tenderness < [facility] Last Filed: 11/20/23 07:34> Bimanual exam- vagina & uterus: bladder normal to palpation [facility] Last Filed: 11/20/23 07:34> Back/Spine/Pelvis: Back: no CVA tenderness [facility] Last Filed: 11/20/23 07:34> Skin: General skin exam: no rashes or lesions noted [facility] Last Filed: 11/20/23 07:34> Neuro: General: patient oriented x3 <Liliana Lynne PA-C - Last Filed: 11/20/23 08:12> Extrem: General: Yes capillary refill normal and No pedal edema <[facility] Last Filed: 11/20/23 07:34> Objective Data Active Medications Acetaminophen (Acetaminophen 325 Mg Tablet) 650 mg PO Q6H PRN PRN Reason: Pain, Mild (Pain Scale 1-3) Last Admin: 11/18/23 22:40 Dose: 650 mg Documented By: JEERD Atenolol (Atenolol 50 Mg Tablet) 50 mg PO DAILY [facility]; Protocol Last Admin: 11/19/23 09:03 Dose: Not Given Documented By: JUSTINE Non-Admin Reason: NPO Enoxaparin Sodium (Enoxaparin Sodium 40 Mg/0.4 Ml Syringe) 40 mg SUBCUT Q24H [facility] Last Admin: 11/19/23 09:04 Dose: Not Given Documented By: JUSTINE Non-Admin Reason: pre op Famotidine (Famotidine 20 Mg Tablet) 40 mg PO DAILY [facility] Last Admin: 11/19/23 09:04 Dose: Not Given Documented By: JUSTINE Non-Admin Reason: NPO Sodium Chloride (Ns) 1,000 mls @ 100 mls/hr IVCONT .Q10H [facility] Last Admin: 11/20/23 04:04 Dose: 100 mls/hr Documented By: JOANA Levothyroxine Sodium (Levothyroxine Sodium 25 Mcg Tablet) 25 mcg PO DAILY@0600 [facility] Last Admin: 11/20/23 04:04 Dose: 25 mcg Documented By: JOANA Morphine Sulfate (Morphine Sulfate 4 Mg/Ml Cartridge) 3 mg IVPUSH Q3H PRN; Protocol PRN Reason: Pain, Severe (Pain Scale 7-10) Last Admin: 11/20/23 07:01 Dose: 3 mg Documented By: STEPHON Ondansetron HCl (Ondansetron Hcl 4 Mg/2 Ml Vial) 4 mg IVPUSH QID PRN PRN Reason: Nausea Last Admin: 11/19/23 03:57 Dose: 4 mg Documented By: GILBERT Oxycodone HCl (Oxycodone Hcl Immed Release 5 Mg Tablet) 5 mg PO Q4H PRN PRN Reason: Pain, Moderate(Pain Scale 4-6) Last Admin: 11/20/23 04:04 Dose: 5 mg Documented By: JOANA Sodium Chloride (0.9 % Sodium Chloride Flush 3 Ml Syringe) 3 ml IVFLUSH QSHIFT [facility] Last Admin: 11/20/23 06:27 Dose: Not Given Documented By: STEPHON Non-Admin Reason: IV Running Sumatriptan Succinate (Sumatriptan Succinate 25 Mg Tablet) 25 mg PO DAILY PRN PRN Reason: Migraine Headache <[facility] Last Filed: 11/20/23 07:34> Labs CBC & Chem 7: 11/19/23 05:16 11/19/23 05:16 <Camille [facility] Last Filed: 11/20/23 07:34> Assessment and Plan (1) Bowel obstruction: Status: Acute <Camille [facility] Filed: 11/20/23 07:34> Assessment and Plan: Urine output 0.99 mL/kg/hr, ng drainage 150 mL Morphine 3mg q3hr and oxycodone 5mg q4hr prn for pain control Plan: clamp ng tube and monitor for n/v <Camille [facility] Filed: 11/20/23 07:34> Urine output 0.99 mL/kg/hr, ng drainage 150 mL Morphine 3mg q3hr and oxycodone 5mg q4hr prn for pain control Plan: clamp ng tube and monitor for n/v Patient seen independently from [facility]-3. She had a smearing of BM overnight but reports no flatus and remains distended. NGT output decreasing but remains bilious. Will keep NGT for now. Ok to have ice chips. saeid Li IV. Nutrition consult for PPN. Hopefully able to remove NGT later today or tomorrow if output remains low, more evidence of GI function and can advance diet. Encouraged OOB/ambulation, IS use. Patient comfortable with plan. <Liliana Lynne PA-C - Last Filed: 11/20/23 08:12> Urine output 0.99 mL/kg/hr, ng drainage 150 mL Morphine 3mg q3hr and oxycodone 5mg q4hr prn for pain control Plan: clamp ng tube and monitor for n/v Patient seen independently from [facility]. She had a smearing of BM overnight but reports no flatus and remains distended. NGT output decreasing but remains bilious. Will keep NGT for now. Ok to have ice chips. saeid Li IV. Nutrition consult for PPN. Hopefully able to remove NGT later today or tomorrow if output remains low, more evidence of GI function and can advance diet. Encouraged OOB/ambulation, IS use. Patient comfortable with plan. Patient seen and examined and agree with the above assessment and plan. <Morales Muro MD - Last Filed: 11/20/23 08:25> Quality Stroke Does the patient have a stroke diagnosis?: No <Camille Miranda - Last Filed: 11/20/23 07:34> VTE Prior VTE?: No <Camille Miranda - Last Filed: 11/20/23 07:34> VTE Risk Level:: Surgical - moderate <Camille Miranda - Last Filed: 11/20/23 07:34> VTE Device Contraindication: N/A - Device Ordered <Camille Miranda - Last Filed: 11/20/23 07:34> VTE Drug Contraindication: N/A - Med Ordered <Camille Miranda - Last Filed: 11/20/23 07:34>
--- NOTE | 2023-11-20 07:50 | PC.NURSE ---
jackson cath removed at 0730 , pt DTV at 1330
[2023-11-20] MEDS: atenoloL 50 MG TABLET PO (08:41)
[2023-11-20] MEDS: Famotidine 20 MG TABLET 40 MG PO (08:41)
[2023-11-20 10:02] VITALS: BMI 23.7
--- NOTE | 2023-11-20 10:11 | MHC.CLN ---
NUTRITION CONSULT FOR PPN. CURRENTLY NPO WITH NGT TO SUCTION. DAY 6 OF NPO OR CLEAR LIQUIDS. PATIENT WITH BOWEL OBSTRUCTION AND UNABLE TO TAKE ADEQUATE PO. COMMUNICATED WITH PHARMACY. RECOMMEND START PPN TODAY: PPN AT 40 ML PER HOUR TO PROVIDE 41 G PROTEIN, 96 G DEXTROSE, 490 KCALS. REPLETE LYTES NEEDED. CHECK TRIGLYCERIDES. FOLLOW FOR GI FUNCTION, PPN TOLERANCE, DIET ADVANCEMENT. SEE CLINICAL NUTRITION ASSESSMENT 11/20/23.
[2023-11-20 10:29] LABS: Albumin Level 3.2 g/dL (3.5-5.0); Anion Gap 11 (12-20); Blood Urea Nitrogen 14 mg/dL (9-16); Calcium 8.6 mg/dL (8.4-10.2); Carbon Dioxide 25 mmol/L (22-29); Chloride 113 mmol/L (96-108); Creatinine Clr Calc Pharmacy 62.6; Estimated Glomerular Filt Rate > 60; Glucose Random 92 mg/dL (60-115); Phosphorus 2.6 mg/dL (2.7-4.5); Potassium 3.6 mmol/L (3.3-5.1); Sodium 145 mmol/L (135-145)
[2023-11-20 15:10] VITALS: BP 126/64; PULSE 71; RESP 20; TEMP 36.6; O2SAT 93
--- NOTE | 2023-11-20 15:28 | MHC.CM.PN ---
pt is surgical will follow for dc
[2023-11-20 19:09] VITALS: BP 115/58; PULSE 75; RESP 20; TEMP 36.7; O2SAT 93
[2023-11-20] MEDS: 0.9 % Sodium Chloride Flush 3 ML SYRINGE IVFLUSH (19:58)
[2023-11-20] MEDS: Famotidine/PF 20 MG/2 ML VIAL IVPUSH (19:58)
[2023-11-20] MEDS: Parenteral Nutrition 960 ML 40 ML IV (20:00)
[2023-11-21] MEDS: 0.9 % Sodium Chloride 1,000 ML 100 ML IVCONT (00:05)
[2023-11-21] MEDS: Morphine Sulfate 4 MG/ML CARTRIDGE 3 MG IVPUSH ×2 (02:35→23:05)
[2023-11-21 03:16] VITALS: BP 116/57; PULSE 79; RESP 16; TEMP 36.6; O2SAT 95
[2023-11-21] MEDS: Levothyroxine Sodium 25 MCG TABLET PO (06:06)
[2023-11-21 06:45] LABS: Albumin Level 3.1 g/dL (3.5-5.0); Anion Gap 11 (12-20); Blood Urea Nitrogen 14 mg/dL (9-16); Carbon Dioxide 28 mmol/L (22-29); Chloride 109 mmol/L (96-108); Creatinine Clr Calc Pharmacy 60.7; Estimated Glomerular Filt Rate > 60; Glucose Random 114 mg/dL (60-115); Phosphorus 2.1 mg/dL (2.7-4.5); Sodium 145 mmol/L (135-145); Triglycerides 124 mg/dL (<150)
[2023-11-21 06:54] LABS: Potassium 2.9 mmol/L (3.3-5.1)
--- NOTE | 2023-11-21 07:00 | MHC.PIE ---
p; potassium 2.9 i; dr platt notified via eneida e; will cont to monitor
[2023-11-21 07:11] VITALS: BP 131/62; PULSE 79; RESP 16; TEMP 36.1; O2SAT 95
[2023-11-21] MEDS: Enoxaparin Sodium 40 MG/0.4 ML SYRINGE SUBCUT (07:45)
[2023-11-21] MEDS: atenoloL 50 MG TABLET PO (07:46)
[2023-11-21] MEDS: Potassium Chloride/H20 10 MEQ/100 ML PIGGYBACK 100 MEQ IV ×4 (07:47→11:30)
--- NOTE | 2023-11-21 07:59 | PM.PNGS ---
Subjective Subjective Date of Service: 11/21/23 Interval history: Feels improved this morning. Passing flatus and had a bowel movement this morning. Mild incisional pain. Physical Exam Vital Signs: Vital Signs: Last Vital Signs Temp 96.9 F 11/21/23 07:11 Pulse 79 11/21/23 07:11 Resp 16 11/21/23 07:11 BP 131/62 11/21/23 07:11 Pulse Ox 95 11/21/23 07:11 O2 Del Method Room Air 11/21/23 07:11 O2 Flow Rate 2 11/19/23 15:13 BMI result Body Mass Index 23.7 Const: General: comfortable, no acute distress and alert Orientation/consciousness: patient oriented x3 Resp: Effort & Inspection: normal respiratory effort GI: Inspection: Yes distended (mild ) and Yes incision (clean) Palpation (GI): Soft to palpation and Tenderness to palpation present (GI) (mild incisional ) Percussion: Yes tympanic to percussion Skin: General skin exam: no rashes or lesions noted Neuro: General: patient oriented x3 Objective Data Active Medications Acetaminophen (Acetaminophen 325 Mg Tablet) 650 mg PO Q6H PRN PRN Reason: Pain, Mild (Pain Scale 1-3) Last Admin: 11/18/23 22:40 Dose: 650 mg Documented By: JERED Atenolol (Atenolol 50 Mg Tablet) 50 mg PO DAILY [facility]; Protocol Last Admin: 11/21/23 07:46 Dose: 50 mg Documented By: JUSTINE Enoxaparin Sodium (Enoxaparin Sodium 40 Mg/0.4 Ml Syringe) 40 mg SUBCUT Q24H [facility] Last Admin: 11/21/23 07:45 Dose: 40 mg Documented By: JUSTINE Famotidine (Famotidine/Pf 20 Mg/2 Ml Vial) 20 mg IVPUSH BID [facility] Last Admin: 11/20/23 19:58 Dose: 20 mg Documented By: JOANA Sodium Chloride (Ns) 1,000 mls @ 100 mls/hr IVCONT .Q10H [facility] Last Admin: 11/21/23 00:05 Dose: 100 mls/hr Documented By: JOANA Nutrition (Parenteral) (Parenteral Nutrition) 960 mls @ 40 mls/hr IV .Q24H [facility]; Protocol Stop: 11/21/23 20:59 Last Admin: 11/20/23 20:00 Dose: 40 mls/hr Documented By: JOANA Potassium Chloride (Potassium Chloride/H20) 10 meq in 100 mls @ 100 mls/hr IV Q1H [facility] Stop: 11/21/23 11:29 Last Admin: 11/21/23 07:47 Dose: 100 mls/hr Documented By: JUSTINE Levothyroxine Sodium (Levothyroxine Sodium 25 Mcg Tablet) 25 mcg PO DAILY@0600 [facility] Last Admin: 11/21/23 06:06 Dose: 25 mcg Documented By: JOANA Morphine Sulfate (Morphine Sulfate 4 Mg/Ml Cartridge) 3 mg IVPUSH Q3H PRN; Protocol PRN Reason: Pain, Severe (Pain Scale 7-10) Last Admin: 11/21/23 02:35 Dose: 3 mg Documented By: JOANA Ondansetron HCl (Ondansetron Hcl 4 Mg/2 Ml Vial) 4 mg IVPUSH QID PRN PRN Reason: Nausea Last Admin: 11/19/23 03:57 Dose: 4 mg Documented By: GILBERT Oxycodone HCl (Oxycodone Hcl Immed Release 5 Mg Tablet) 5 mg PO Q4H PRN PRN Reason: Pain, Moderate(Pain Scale 4-6) Last Admin: 11/20/23 12:12 Dose: 5 mg Documented By: STEPHON Pharmacy Consult (Consult Rx Parenteral Nutrition Ordering) 1 each MISCELLANE DAILY PRN PRN Reason: Consult order Sodium Chloride (0.9 % Sodium Chloride Flush 3 Ml Syringe) 3 ml IVFLUSH QSHIFT [facility] Last Admin: 11/21/23 07:51 Dose: Not Given Documented By: JUSTINE Non-Admin Reason: IV Running Sumatriptan Succinate (Sumatriptan Succinate 25 Mg Tablet) 25 mg PO DAILY PRN PRN Reason: Migraine Headache Labs 11/19/23 05:16 11/21/23 05:29 Labs: Laboratory Results - last 24 hr 11/20/23 11/21/23 09:08 05:29 Anion Gap 11 L 11 L Estim Creat Clear Calc 62.6 60.7 Estimated GFR > 60 > 60 Random Glucose 92 114 Calcium 8.6 D 9.0 Phosphorus 2.6 L 2.1 L Magnesium 2.0 2.0 Albumin 3.2 L 3.1 L Triglycerides 124 Procedures Date of Service Date of Service: 11/21/23 Progress Note: A&P Assessment and plan (1) Bowel obstruction: Status: Acute Plan Doing well post op now with evidence of GI function. Dc NGT. Begin clear liquids. Cont PPN until PO intake increases. VSS. Abd exam benign, distention improved, incision clean. Encouraged OOB/ambulation, IS use. Patient comfortable with plan. Hypokalemia this AM, IV replacement ordered. Time Spent With Patient Time: Total time managing care of this patient today ____ minutes. Quality Stroke Does the patient have a stroke diagnosis?: No VTE Prior VTE?: No VTE Risk Level:: Surgical - moderate VTE Device Contraindication: N/A - Device Ordered VTE Drug Contraindication: N/A - Med Ordered
[2023-11-21] MEDS: Famotidine/PF 20 MG/2 ML VIAL IVPUSH ×2 (08:24→20:06)
--- NOTE | 2023-11-21 10:12 | MHC.CLN ---
F/U DIET ADVANCED TO CLEAR LIQUIDS. PATIENT WITH BOWEL OBSTRUCTION AND UNABLE TO TAKE ADEQUATE PO. COMMUNICATED WITH PHARMACY. RECOMMEND INCREASE PPN TODAY: PPN AT 60 ML PER HOUR TO PROVIDE 61 G PROTEIN, 144 G DEXTROSE, 734 KCALS. REPLETE LYTES NEEDED. POTASSIUM AND PHOSPHORUS LABS LOW. IF ABLE, ADVANCE TOMORROW TO MAX GOAL RATE PPN AT 60 ML PER PLUS 75 G LIPID TO PROVIDE 61 G PROTEIN (1.1 G/KG); 144 G DEXTROSE; TOTAL KCALS FROM PPN WITH LIPIDS 1484 KCALS (26.1 KCALS/KG). REPLETE LYTES NEEDED. FOLLOW FOR DIET ADVANCEMENT AND PPN TOLERANCE.
[2023-11-21 15:28] VITALS: BP 124/65; PULSE 88; RESP 22; TEMP 37; O2SAT 95
[2023-11-21] MEDS: oxyCODONE HCl Immed Release 5 MG TABLET PO ×2 (16:07→20:05)
[2023-11-21 19:33] VITALS: BP 121/60; PULSE 84; RESP 18; TEMP 37.3; O2SAT 96
[2023-11-21] MEDS: Parenteral Nutrition 1,440 ML 60 ML IV (20:05)
[2023-11-21] MEDS: 0.9 % Sodium Chloride Flush 3 ML SYRINGE IVFLUSH (23:09)
[2023-11-22 03:12] VITALS: BP 128/70; PULSE 84; RESP 16; TEMP 36.7; O2SAT 96
[2023-11-22] MEDS: Levothyroxine Sodium 25 MCG TABLET PO (06:05)
[2023-11-22 07:35] VITALS: BP 126/63; PULSE 90; RESP 16; TEMP 36.7; O2SAT 96
--- NOTE | 2023-11-22 07:36 | PM.PNGS ---
Subjective Subjective Date of Service: 11/22/23 Interval history: Feels well. Tolerating liquids without nausea or vomiting. passing flatus. OOB and ambulating. Reports back pain, very mild incisional. Physical Exam Vital Signs: Vital Signs: Last Vital Signs Temp 98.1 F 11/22/23 07:35 Pulse 90 11/22/23 07:35 Resp 16 11/22/23 07:35 BP 126/63 11/22/23 07:35 Pulse Ox 96 11/22/23 07:35 O2 Del Method Room Air 11/22/23 07:35 O2 Flow Rate 2 11/19/23 15:13 BMI result Body Mass Index 23.7 Const: General: comfortable, no acute distress and alert Orientation/consciousness: patient oriented x3 Resp: Effort & Inspection: normal respiratory effort GI: Inspection: No distended and Yes incision (clean) Palpation (GI): Soft to palpation, Tenderness to palpation present (GI) (mild incisional) and no guarding Skin: General skin exam: no rashes or lesions noted Neuro: General: patient oriented x3 and moves all extremities Objective Data Active Medications Acetaminophen (Acetaminophen 325 Mg Tablet) 650 mg PO Q6H PRN PRN Reason: Pain, Mild (Pain Scale 1-3) Last Admin: 11/18/23 22:40 Dose: 650 mg Documented By: JERED Atenolol (Atenolol 50 Mg Tablet) 50 mg PO DAILY [facility]; Protocol Last Admin: 11/21/23 07:46 Dose: 50 mg Documented By: JUSTINE Enoxaparin Sodium (Enoxaparin Sodium 40 Mg/0.4 Ml Syringe) 40 mg SUBCUT Q24H [facility] Last Admin: 11/21/23 07:45 Dose: 40 mg Documented By: JUSTINE Famotidine (Famotidine/Pf 20 Mg/2 Ml Vial) 20 mg IVPUSH BID [facility] Last Admin: 11/21/23 20:06 Dose: 20 mg Documented By: JERED Nutrition (Parenteral) (Parenteral Nutrition) 1,440 mls @ 60 mls/hr IV .Q24H [facility]; Protocol Stop: 11/22/23 20:59 Last Admin: 11/21/23 20:05 Dose: 60 mls/hr Documented By: JERED Levothyroxine Sodium (Levothyroxine Sodium 25 Mcg Tablet) 25 mcg PO DAILY@0600 [facility] Last Admin: 11/22/23 06:05 Dose: 25 mcg Documented By: ANAM Morphine Sulfate (Morphine Sulfate 4 Mg/Ml Cartridge) 3 mg IVPUSH Q3H PRN; Protocol PRN Reason: Pain, Severe (Pain Scale 7-10) Last Admin: 11/21/23 23:05 Dose: 3 mg Documented By: ANAM Ondansetron HCl (Ondansetron Hcl 4 Mg/2 Ml Vial) 4 mg IVPUSH QID PRN PRN Reason: Nausea Last Admin: 11/19/23 03:57 Dose: 4 mg Documented By: GILBERT Oxycodone HCl (Oxycodone Hcl Immed Release 5 Mg Tablet) 5 mg PO Q4H PRN PRN Reason: Pain, Moderate(Pain Scale 4-6) Last Admin: 11/21/23 20:05 Dose: 5 mg Documented By: JERED Pharmacy Consult (Consult Rx Parenteral Nutrition Ordering) 1 each MISCELLANE DAILY PRN PRN Reason: Consult order Sodium Chloride (0.9 % Sodium Chloride Flush 3 Ml Syringe) 3 ml IVFLUSH [facility] Last Admin: 11/21/23 23:09 Dose: 3 ml Documented By: ANAM Sumatriptan Succinate (Sumatriptan Succinate 25 Mg Tablet) 25 mg PO DAILY PRN PRN Reason: Migraine Headache Labs 11/19/23 05:16 11/21/23 05:29 Procedures Date of Service Date of Service: 11/22/23 Progress Note: A&P Assessment and plan (1) Bowel obstruction: Status: Acute Plan POD #3 s/p ex lap, SHAKILA. Tolerating clears with good GI function. VSS. Abd benign with clean incision, non distended. Advance to solid diet. If tolerating and comfortable on PO analgesics, possible stable for dc to home later today. Time Spent With Patient Time: Total time managing care of this patient today ____ minutes. Quality Stroke Does the patient have a stroke diagnosis?: No VTE Prior VTE?: No VTE Risk Level:: Surgical - moderate VTE Device Contraindication: N/A - Device Ordered VTE Drug Contraindication: N/A - Med Ordered
[2023-11-22 07:52] LABS: Anion Gap 9 (12-20); Blood Urea Nitrogen 10 mg/dL (9-16); Calcium 8.9 mg/dL (8.4-10.2); Carbon Dioxide 32 mmol/L (22-29); Chloride 102 mmol/L (96-108); Creatinine Clr Calc Pharmacy 61.6; Estimated Glomerular Filt Rate > 60; Glucose Random 111 mg/dL (60-115); Magnesium 2.1 mg/dL (1.6-2.6); Phosphorus 2.8 mg/dL (2.7-4.5); Potassium 3.5 mmol/L (3.3-5.1); Sodium 139 mmol/L (135-145)
[2023-11-22] MEDS: Enoxaparin Sodium 40 MG/0.4 ML SYRINGE SUBCUT (08:06)
[2023-11-22] MEDS: atenoloL 50 MG TABLET PO (08:06)
--- NOTE | 2023-11-22 08:06 | PM.PNGS ---
Subjective Subjective Date of Service: 11/22/23 Interval history: Patient with no new complaints, tolerating her regular diet without nausea or vomiting. Reports minimal abdominal pain. Physical Exam Vital Signs: Vital Signs: Last Vital Signs Temp 98.1 F 11/22/23 07:35 Pulse 90 11/22/23 07:35 Resp 16 11/22/23 07:35 BP 126/63 11/22/23 07:35 Pulse Ox 96 11/22/23 07:35 O2 Del Method Room Air 11/22/23 07:35 O2 Flow Rate 2 11/19/23 15:13 BMI result Body Mass Index 23.7 Const: General: no acute distress Nutritional Appearance: well nourished Orientation/consciousness: patient oriented x3 Resp: Effort & Inspection: normal respiratory effort, no audible wheezes, no cough and no respiratory distress GI: Other: Incision clean, dry, and intact without redness or discharge. Inspection: Yes normal to inspection Neuro: General: patient oriented x3 Objective Data Active Medications Acetaminophen (Acetaminophen 325 Mg Tablet) 650 mg PO Q6H PRN PRN Reason: Pain, Mild (Pain Scale 1-3) Last Admin: 11/18/23 22:40 Dose: 650 mg Documented By: JERED Atenolol (Atenolol 50 Mg Tablet) 50 mg PO DAILY [facility]; Protocol Last Admin: 11/21/23 07:46 Dose: 50 mg Documented By: JUSTINE Enoxaparin Sodium (Enoxaparin Sodium 40 Mg/0.4 Ml Syringe) 40 mg SUBCUT Q24H [facility] Last Admin: 11/21/23 07:45 Dose: 40 mg Documented By: JUSTINE Famotidine (Famotidine/Pf 20 Mg/2 Ml Vial) 20 mg IVPUSH BID [facility] Last Admin: 11/21/23 20:06 Dose: 20 mg Documented By: JERED Nutrition (Parenteral) (Parenteral Nutrition) 1,440 mls @ 60 mls/hr IV .Q24H [facility]; Protocol Stop: 11/22/23 20:59 Last Admin: 11/21/23 20:05 Dose: 60 mls/hr Documented By: JERED Levothyroxine Sodium (Levothyroxine Sodium 25 Mcg Tablet) 25 mcg PO DAILY@0600 [facility] Last Admin: 11/22/23 06:05 Dose: 25 mcg Documented By: ANAM Morphine Sulfate (Morphine Sulfate 4 Mg/Ml Cartridge) 3 mg IVPUSH Q3H PRN; Protocol PRN Reason: Pain, Severe (Pain Scale 7-10) Last Admin: 11/21/23 23:05 Dose: 3 mg Documented By: ANAM Ondansetron HCl (Ondansetron Hcl 4 Mg/2 Ml Vial) 4 mg IVPUSH QID PRN PRN Reason: Nausea Last Admin: 11/19/23 03:57 Dose: 4 mg Documented By: GILBERT Oxycodone HCl (Oxycodone Hcl Immed Release 5 Mg Tablet) 5 mg PO Q4H PRN PRN Reason: Pain, Moderate(Pain Scale 4-6) Last Admin: 11/21/23 20:05 Dose: 5 mg Documented By: JERED Pharmacy Consult (Consult Rx Parenteral Nutrition Ordering) 1 each MISCELLANE DAILY PRN PRN Reason: Consult order Sodium Chloride (0.9 % Sodium Chloride Flush 3 Ml Syringe) 3 ml [facility]USH [facility] Last Admin: 11/22/23 08:02 Dose: Not Given Documented By: JANEEN Non-Admin Reason: IV Running Sumatriptan Succinate (Sumatriptan Succinate 25 Mg Tablet) 25 mg PO DAILY PRN PRN Reason: Migraine Headache Labs 11/19/23 05:16 11/22/23 05:45 Labs: Laboratory Results - last 24 hr 11/22/23 05:45 Anion Gap 9 L Estim Creat Clear Calc 61.6 Estimated GFR > 60 Random Glucose 111 Calcium 8.9 Phosphorus 2.8 Magnesium 2.1 Albumin 3.0 L Procedures Date of Service Date of Service: 11/22/23 Progress Note: A&P Assessment and plan (1) Bowel obstruction: Status: Acute Plan Pod 3 following exploratory laparotomy with lysis of adhesions for small-bowel obstruction. She is tolerating regular diet and having formed bowel movements. We will stop the PPN. Possible discharge later today or tomorrow. Time Spent With Patient Time: Total time managing care of this patient today ____ minutes. Quality Stroke Does the patient have a stroke diagnosis?: No VTE Prior VTE?: No VTE Risk Level:: Surgical - moderate VTE Device Contraindication: N/A - Device Ordered VTE Drug Contraindication: N/A - Med Ordered
[2023-11-22] MEDS: Famotidine/PF 20 MG/2 ML VIAL IVPUSH (08:07)
[2023-11-22 08:16] LABS: Triglycerides 121 mg/dL (<150)
--- NOTE | 2023-11-22 12:10 | MHC.CLN ---
F/U PATIENT TOLERATING REGULAR DIET. INTAKE APPEARS TO BE GOOD. PPN DISCONTINUED PER MD.
--- NOTE | 2023-11-22 13:51 | PM.DS ---
DS: Providers Provider Date of Service: 11/22/23 <Liliana Lynne PA-C - Last Filed: 11/22/23 15:18> Date of admission: 11/14/23 05:47 <Liliana Lynne PA-C - Last Filed: 11/22/23 15:18> Date of discharge: 11/22/23 <BINH HallC - Last Filed: 11/22/23 15:18> Primary care physician: Laurie Velázquez <BINH HallC - Last Filed: 11/22/23 15:18> Attending physician on admission: Morales Muro <Liliana Lynne PA-C - Last Filed: 11/22/23 15:18> Attending physician on discharge: Morales Muro <BINH HallC - Last Filed: 11/22/23 15:18> DS: Diagnosis Discharge Diagnosis (1) Bowel obstruction: Status: Acute <Liliana Lynne PA-C - Last Filed: 11/22/23 15:18> DS: Summary Hospital Course Hospital Course: HPI AT ADMISSION: Annabel Mckinley is a 68 year old female presenting with complaints of episodes of sharp abdominal pain located throughout the abdomen associated with nausea and vomiting. Patient reports a prior history of hysterectomy back in the 80s and denies a previous history of bowel obstructions. The pain became quite severe over the last several days and she subsequently presented to the emergency department for further evaluation. She was noted to be diffusely tender and distended. CT abdomen and pelvis revealed distended loops of small bowel with an apparent transition point in the distal small bowel. Nasogastric tube was inserted in the emergency department. This morning the patient feels somewhat improved with less abdominal pain the pain initially was 10/10 but now is down to 3/10. She denies any nausea at this time. HOSPITAL COURSE: She is admitted to the surgical service for further management of this small-bowel obstruction. Patient was initially treated non operatively with bowel rest and nasogastric tube decompression. She initially improved and had a bowel movement however subsequently developed increased abdominal distention, nausea and vomiting. SBFT was attempted but she was unable to tolerate the contrast. It was therefore recommended to proceed with exploratory laparotomy, lysis of adhesions possible small bowel resection. NGT was inserted preoperatively. On 11/19/23, exploratory laparotomy, lysis of adhesions was performed by Dr. Muro without complication. She was found to have SBO due to adhesions from previous hysterectomy. The patient tolerated the procedure well. On POD #1 her jackson was removed. She was ambulated. She began to pass flatus and move her bowels. Her NGT had low output and was removed on POD #2. She was started on clear liquids. The following day she was advanced to solid diet. She was tolerating this without nausea or vomiting. Her pain was well controlled. Her abdomen was benign with clean incision and appropriate post op tenderness. She was discharged to home on 11/22/23 in stable condition. She is to follow up in the office in 1 week for staple removal. <Liliana Lynne PA-C - Last Filed: 11/22/23 15:18> Status at Discharge Functional status at discharge: independent ambulation <Lilinaa Lynne PA-C - Last Filed: 11/22/23 15:18> Overall status at discharge: patient is progressing back to baseline <Liliana Lynne PA-C - Last Filed: 11/22/23 15:18> Time Attestation Discharge Coordination Time (in mins): 45 <Liliana Lynne PA-C - Last Filed: 11/22/23 15:18> Quality: Safe Use of Opioids Does Pt have an Active Cancer Diagnosis on the Problem List?: No <Morales Muro MD - Last Filed: 11/22/23 14:38> Quality: Stroke Does the patient have a stroke diagnosis?: No <Morales Muro MD - Last Filed: 11/22/23 14:38> Physical Exam Vital Signs: Vital Signs: Last Vital Signs Temp 98.1 F 11/22/23 07:35 Pulse 90 11/22/23 07:35 Resp 16 11/22/23 07:35 BP 126/63 11/22/23 07:35 Pulse Ox 96 11/22/23 07:35 O2 Del Method Room Air 11/22/23 07:35 O2 Flow Rate 2 11/19/23 15:13 BMI result Body Mass Index 23.7 <Liliana Lynne PA-C - Last Filed: 11/22/23 15:18> Const: Orientation/consciousness: patient oriented x3 <Liliana MagedESTELA montero - Last Filed: 11/22/23 15:18> Resp: Effort & Inspection: normal respiratory effort <Liliana BrandESTELA montero - Last Filed: 11/22/23 15:18> GI: Inspection: Yes distended (mildly) and Yes incision (clean) <Liliana MagedESTELA montero - Last Filed: 11/22/23 15:18> Palpation (GI): Soft to palpation and no guarding <Liliana MagedESTELA montero - Last Filed: 11/22/23 15:18> Skin: General skin exam: no rashes or lesions noted <Liliana Lynne PA-C - Last Filed: 11/22/23 15:18> Neuro: General: patient oriented x3 and moves all extremities <Liliana MagedESTELA montero - Last Filed: 11/22/23 15:18> DS: Data Data Completed and Pending Labs on day of discharge: Laboratory Results - last 24 hr 11/22/23 11/22/23 05:45 07:54 Sodium 139 Potassium 3.5 D Chloride 102 Carbon Dioxide 32 H Anion Gap 9 L BUN 10 Creatinine 0.65 Estim Creat Clear Calc 61.6 Estimated GFR > 60 Random Glucose 111 Calcium 8.9 Phosphorus 2.8 Magnesium 2.1 Albumin 3.0 L Triglycerides 121 <Liliana Lynne PA-C - Last Filed: 11/22/23 15:18> Discharge Plan Discharge Anticipated Discharge Date/Time: 11/16/23 08:43 <Liliana Lynne PA-C - Last Filed: 11/22/23 15:18> Patient Disposition: Home, Self-Care <Liliana Lynne PA-C - Last Filed: 11/22/23 15:18> Discharge Diagnosis: SBO <Liliana Lynne PA-C - Last Filed: 11/22/23 15:18> SBO <Morales Muro MD - Last Filed: 11/22/23 14:38> Referrals: Morales Muro MD [Physician] - 1 Week Laurie Velázquez [Primary Care Provider] - 1 Week <Liliana Lynne PA-C - Last Filed: 11/22/23 15:18> Discharge Medications: New docusate sodium [Colace] 100 mg capsule 100 mg PO BID Qty: 30 0RF oxycodone 5 mg tablet 5 mg PO Q4H PRN (Reason: pain (scale score 7-10)) Qty: 24 0RF Rx Instructions: Partial Fill upon patient request. Continued famotidine 40 mg tablet 40 mg PO DAILY levothyroxine [Synthroid] 25 mcg tablet 25 mcg PO DAILY@0600 atenolol 50 mg tablet 50 mg PO DAILY diclofenac sodium 1 % gel 1 g topical TID PRN (Reason: pain) sumatriptan succinate 25 mg tablet 25 mg PO DAILY PRN (Reason: Migraine Headache) Rx Instructions: TAKE 1 TABLET BY MOUTH AT ONSET OF MIGRAINE. MAY REPEAT ONCE AFTER 2 HOURS IF NEEDED, DO NOT EXCEED 2 TABLETS / 24 HOURS <Lilaina Lynne PA-C - Last Filed: 11/22/23 15:18> Discharge Orders: Discharge Order (Routine); Ordered 11/22/23 Ordered By: Liliana Lynne <Liliana Lynne PA-C - Last Filed: 11/22/23 15:18> Diet: Advance to usual diet <Liliana Lynne PA-C - Last Filed: 11/22/23 15:18> Advance to usual diet <Morales Muro MD - Last Filed: 11/22/23 14:38> Activity on Discharge: As tolerated <Liliana Lynne PA-C - Last Filed: 11/22/23 15:18> As tolerated <Morales Muro MD - Last Filed: 11/22/23 14:38> Stand Alone Forms: Patient Portal Discharge page <Liliana Lynne PA-C - Last Filed: 11/22/23 15:18> Print Language: Tristanian <Liliana Lynne PA-C - Last Filed: 11/22/23 15:18> Activity Restrictions/Additional Instructions: If the incision area is tender, you may apply an ice pack for short intervals (No more than 20 minutes on, followed by at least 20 minutes off). Do not apply heat. Do not use creams, lotions, or topical antibiotics. These can cause infection or allergic reaction. Ok to shower. You have hector closing your incision and these will be removed approximately 10-14 days after surgery. NO HEAVY LIFTING (>10lbs) or strenuous activity. Follow up in office with Dr. Muro in 1 week. ([phone]) Call Your Doctor If: -Your temperature exceeds 101.5? F -You experience excessive pain or swelling -You have an unexpected reaction to medication -You have excessive bleeding -You experience continued vomiting/nausea -Your incision begins to separate -Your incision shows signs of infection such as increased redness, swelling, excessive pain, drainage (light blood or clear fluid is normal) or heat <Liliana Lynne PA-C - Last Filed: 11/22/23 15:18> Care Plan Goals: Return to baseline health and resume normal activities as tolerated. <ESTELA Hall Last Filed: 11/22/23 15:18> Health Concerns: HTN hypothyroidism SBO <ESTELA Hall Last Filed: 11/22/23 15:18> Plan of Treatment: laparotomy, lysis of adhesions Diet as tolerated Pain control F/u in office in 1 week <ESTELA Hall Last Filed: 11/22/23 15:18> Assessment: Doing well post op. <ESTELA Hall Last Filed: 11/22/23 15:18> Patient Instructions: Bowel Obstruction (GEN) <ESTELA Hall Last Filed: 11/22/23 15:18>
--- NOTE | 2023-11-22 14:20 | MHC.CM.PN ---
PT DCD HOME SELF CARE
== END 2023-11-22 15:34 | disposition home or self-care (01) | DRG 337 ==
LOC: HO.ED 05:37 → HO.EDOVER 05:55 → HO.S3 09:06
PROVIDERS: Physician Assistant Surgical; Surgery; Admitting Provider Surgery; Emergency Provider Emergency Medicine; PCP Nurse Practitioner; Visit Provider Surgery
PROC: 0DNB0ZZ Release Ileum, Open Approach (ICD-10-PCS; CPT 49000; principal; 2023-11-19 13:00)
DX: K91.32 Postprocedural complete intestinal obstruction (principal); Y83.8 Other surgical procedures as the cause of abnormal reaction of the patient, or of later complication, without mention of misadventure at the time of the procedure; I10 Essential (primary) hypertension; E03.9 Hypothyroidism, unspecified; G89.18 Other acute postprocedural pain; Z79.890 Hormone replacement therapy; Z79.899 Other long term (current) drug therapy
CPT/HCPCS: 36415; 71045; 74018; 74177; 74250; 80048; 80076; 81001; 82040; 83690; 83735; 84100; 84478; 85007; 85025; 85027; 99285; C1758; J0131; J0171; J0665; J0690; J1100; J1650; J2250; J2270; J2405; J2598; J2704; J3010; J3480; J7120; Q9967

== ENCOUNTER 2023-11-14 05:47 | Outpatient (BNV) | payer OTHER, SELFPAY | END 2023-11-18 08:30 | PROVIDERS: Admitting Provider Surgery; Emergency Provider Emergency Medicine; PCP Nurse Practitioner; Visit Provider Radiology Diagnostic Radiology | DX: K56.609 Unspecified intestinal obstruction, unspecified as to partial versus complete obstruction (principal) | CPT/HCPCS: 74250 ==

== ENCOUNTER → 2023-11-14 05:47 | Outpatient (BNV) | payer OTHER, SELFPAY | PROVIDERS: Admitting Provider Surgery; Emergency Provider Emergency Medicine; PCP Nurse Practitioner; Visit Provider Surgery | DX: K56.51 Intestinal adhesions [bands], with partial obstruction (principal) | CPT/HCPCS: 44005; 99024; 99222; 99232; 99499 ==

== ENCOUNTER 2023-11-28 13:29 | Outpatient (AMB) | payer OTHER, SELFPAY ==
[2023-11-28 13:41] VITALS: BP 122/82; BMI 19.7
--- NOTE | 2023-11-28 13:41 | MHC.OFFVIS ---
Vital Signs 11/28/23 13:41 Height 5 ft 1.5 in Weight 105 lb 13.15 oz BMI 19.7 BP 122/82 Blood Pressure Location Lt brachial Position Sitting Intake Visit Reasons: S/p exp laparotomy Intake Note: Patient is seen in office for post op assessment post exploratory laparotomy. 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: No Accompanied by: Self / Same As Patient Allergies Sulfa (Sulfonamide Antibiotics) Allergy (Verified 11/28/23 13:46) Anaphylaxis aspirin Adverse Reaction (Verified 11/28/23 13:46) Nausea Medication List - Last Reconciled 11/28/23 by Morales Muro MD atenolol 50 mg PO DAILY diclofenac sodium 1% 1 g topical TID PRN docusate sodium (Colace) 100 mg PO BID famotidine 40 mg PO DAILY levothyroxine (Synthroid) 25 mcg PO DAILY@0600 oxycodone 5 mg PO Q4H PRN sumatriptan succinate 25 mg PO DAILY PRN HPI Comments Details: 68-year-old female patient returning 1 week following a recent admission for small-bowel obstruction. She subsequently required an exploratory laparotomy with lysis of adhesions. She tolerated the procedure well was subsequently discharged home on postoperative day 3. She reports having several episodes of diarrhea but now is eating well and denies nausea or vomiting. She denies significant abdominal pain but does have occasional discomfort in the left lower quadrant. She denies fever or chills. [facility] Medical History Hypothyroidism HTN (hypertension) Surgical History H/O exploratory laparotomy (11/19/23) History of tubal ligation History of bilateral oophorectomy History of hysterectomy Social History Household Members: None Housing: Apartment Do you presently have visiting nurse or other home services: No Patient Tobacco Use Status: Never used Tobacco Second Hand Smoke Exposure: No service: No Review of Systems Const All systems reviewed & are unremarkable except as noted in HPI and below Physical Exam Vital Signs: Last Vital Signs BP 122/82 11/28/23 13:41 BMI result Body Mass Index 19.7 Const General: no acute distress Nutritional Appearance: well nourished Orientation/consciousness: patient oriented x3 Limitations: no limitations Resp Effort & Inspection: normal respiratory effort, no audible wheezes, no cough and no respiratory distress GI Other: Lower midline incision is clean, dry, and intact without redness or discharge. No hernias identified. Remainder abdomen is soft and nondistended. No tympany to percussion. Skin Other: Warm, dry, no rash Neuro General: patient oriented x3 Extrem General: Yes no clubbing, cyanosis or edema Assessment & Plan Assessment & Plan (1) Bowel obstruction: Code(s): K56.609 - Unspecified intestinal obstruction, unspecified as to partial versus complete obstruction Category: Medical Qualifiers: Intestinal obstruction extent: partial Intestinal obstruction type: obstruction due to adhesions Qualified Code(s): K56.51 - Intestinal adhesions [bands], with partial obstruction Plan 68-year-old female patient returning following exploratory laparotomy, enterolysis now much improved with no abdominal pain. Her incision is clean, dry, and intact. She should continue to avoid lifting greater than 10 lb and return in 1 month for follow-up examination. She is welcome to call sooner for any new concerns. Coding Level of Care Code Global (30115) Diagnoses Intestinal adhesions with partial obstruction K56.51 Intestinal obstruction extent: partial Intestinal obstruction type: obstruction due to adhesions
== END 2023-11-28 13:56 | disposition home or self-care (01) ==
PROVIDERS: PCP Nurse Practitioner; Visit Provider Surgery
DX: K56.51 Intestinal adhesions [bands], with partial obstruction (principal)
CPT/HCPCS: 99024

== ENCOUNTER → 2023-11-28 13:29 | Outpatient (BNVA) | payer OTHER, SELFPAY | PROVIDERS: PCP Nurse Practitioner; Visit Provider Surgery | DX: K56.51 Intestinal adhesions [bands], with partial obstruction (principal) | CPT/HCPCS: 99212 ==

== ENCOUNTER 2024-01-15 13:34 | Outpatient (REF) | payer OTHER, SELFPAY ==
--- NOTE | ~2024-01-15 | MM_ITS ---
EXAMINATION: MM SCREENING DIGITAL BREAST TOMOSYNTHESIS, BILATERAL CLINICAL INFORMATION: Screening. Asymptomatic. COMPARISON: Mammography: Baseline. TECHNIQUE: Digital breast mammography with tomosynthesis is performed in both the craniocaudal and mediolateral oblique views along with computer-aided detection (CAD). FINDINGS: The breasts are heterogeneously dense, which may obscure small masses (ACR BI-RADS breast composition Category c). Left: There are no significant masses, abnormal calcifications, or other abnormalities. Right: Focal asymmetry upper outer breast posterior depth. No suspicious calcifications or other abnormal findings. MM/MM tomosynthesis screening BI IMPRESSION: Additional imaging is recommended ASSESSMENT: BI-RADS BI-RADS 0 - Incomplete: Needs additional Imaging. RECOMMENDATION: 1. Additional views of the right breast 2. Targeted ultrasound if warranted after review of the additional views. 3. Radiology department staff will contact the patient for additional imaging. Additional Imaging required This examination should not preclude the clinical evaluation of a suspicious palpable abnormality. This patient's information was entered into a reminder system with a target due date for their next mammogram. Electronically signed by: Alicia Werner DO 01/28/2024 08:47 AM EST
== END 2024-01-15 13:35 | disposition home or self-care (01) ==
LOC: HO.MAMMO 13:34
PROVIDERS: PCP Nurse Practitioner; Visit Provider Nurse Practitioner
DX: Z12.31 Encounter for screening mammogram for malignant neoplasm of breast (principal)
CPT/HCPCS: 77063; 77067

== ENCOUNTER → 2024-01-15 14:00 | Outpatient (BNV) | payer OTHER, SELFPAY | PROVIDERS: PCP Nurse Practitioner; Visit Provider Internal Medicine | DX: Z12.31 Encounter for screening mammogram for malignant neoplasm of breast (principal) | CPT/HCPCS: 77063; 77067 ==

== ENCOUNTER 2024-01-16 13:29 | Outpatient (AMB) | payer OTHER, SELFPAY ==
--- NOTE | 2024-01-16 13:31 | MHC.OFFVIS ---
Vital Signs 01/16/24 13:37 Height 5 ft 1.5 in Weight 107 lb 2 oz BMI 19.9 BP 131/60 Blood Pressure Location Lt brachial Position Sitting Pulse 74 Intake Visit Reasons: one month, exp lap Intake Note: Patient is seen in office for one month follow up visit, post exploratory laparotomy. Pt c/o: denies any concerns Culinary Assistant Required: No Accompanied by: Family/Other Allergies Sulfa (Sulfonamide Antibiotics) Allergy (Verified 01/16/24 13:37) Anaphylaxis aspirin Adverse Reaction (Verified 01/16/24 13:37) Nausea Medication List - Last Reconciled 01/16/24 by Morales Muro MD atenolol 50 mg PO DAILY diclofenac sodium 1% 1 g topical TID PRN docusate sodium (Colace) 100 mg PO BID famotidine 40 mg PO DAILY levothyroxine (Synthroid) 25 mcg PO DAILY@0600 oxycodone 5 mg PO Q4H PRN sumatriptan succinate 25 mg PO DAILY PRN HPI Comments Details: 68-year-old female patient returning 1 month following a recent admission for small-bowel obstruction. She subsequently required an exploratory laparotomy with lysis of adhesions. She tolerated the procedure well was subsequently discharged home on postoperative day 3. She generally feels well and denies any abdominal pain. She is eating fine without nausea or vomiting. Her bowels are normal as well. [facility] Medical History Hypothyroidism HTN (hypertension) Surgical History H/O exploratory laparotomy (11/19/23) History of tubal ligation History of bilateral oophorectomy History of hysterectomy Social History Household Members: None Housing: Apartment Do you presently have visiting nurse or other home services: No Patient Tobacco Use Status: Never used Tobacco Second Hand Smoke Exposure: No service: No Physical Exam Vital Signs: Last Vital Signs Pulse 74 01/16/24 13:37 BP 131/60 01/16/24 13:37 BMI result Body Mass Index 19.9 Const General: no acute distress Nutritional Appearance: well nourished Orientation/consciousness: patient oriented x3 Limitations: no limitations Resp Effort & Inspection: normal respiratory effort, no audible wheezes, no cough and no respiratory distress GI Other: Lower midline incision is clean, dry, and intact without redness or discharge. No hernias identified. Remainder abdomen is soft and nondistended. No tympany to percussion. Skin Other: Warm, dry, no rash Neuro General: patient oriented x3 Extrem General: Yes no clubbing, cyanosis or edema Assessment & Plan Assessment & Plan (1) Bowel obstruction: Code(s): K56.609 - Unspecified intestinal obstruction, unspecified as to partial versus complete obstruction Category: Medical Qualifiers: Intestinal obstruction extent: partial Intestinal obstruction type: obstruction due to adhesions Qualified Code(s): K56.51 - Intestinal adhesions [bands], with partial obstruction Plan 68-year-old female patient status post lysis of adhesions for small-bowel obstruction. She tolerated the procedure well and her wounds are now well healed. She may resume normal activities without restrictions and should follow up as needed. Coding Level of Care Code Global (85086) Diagnoses Intestinal adhesions with partial obstruction K56.51 Intestinal obstruction extent: partial Intestinal obstruction type: obstruction due to adhesions
[2024-01-16 13:37] VITALS: BP 131/60; PULSE 74; BMI 19.9
== END 2024-01-16 14:08 | disposition home or self-care (01) ==
PROVIDERS: PCP Nurse Practitioner; Visit Provider Surgery
DX: K56.51 Intestinal adhesions [bands], with partial obstruction (principal)
CPT/HCPCS: 99024

== ENCOUNTER → 2024-01-16 13:29 | Outpatient (BNVA) | payer OTHER, SELFPAY | PROVIDERS: PCP Nurse Practitioner; Visit Provider Surgery | DX: Z48.815 Encounter for surgical aftercare following surgery on the digestive system (principal); Z98.890 Other specified postprocedural states | CPT/HCPCS: 99212 ==